=== PATIENT | female | born 1980 | race Caucasian/White ===

== ENCOUNTER 2023-10-05 10:01 | Outpatient (AMB) | payer OTHER, SELFPAY ==
--- NOTE | 2023-10-05 10:09 | A.OFFPC_ITS ---
Vital Signs 10/05/23 10:12 Height 4 ft 9 in Weight 169 lb BMI 36.6 BP 130/70 Blood Pressure Location Lt brachial Position Sitting Pulse 70 Pulse Source Pulse Oximeter Pulse Oximetry (%) 98 Oxygen Delivery Method Room Air Intake Visit Reasons: [facility] 09/13 uti, kidney stones, bladder infection Intake Note: Patient is here for hospital discharge follow up. Patient was discharged from [facility] on 09/15/23. Dude Wrangler Required: No Wilton Weaver: Not Required per policy Accompanied by: Self / Same As Patient Allergies No Known Allergies Allergy (Verified 10/05/23 17:20) Medication List - Last Reconciled 10/05/23 by Ronan Telles MD cholecalciferol (vitamin D3) 25 mcg PO DAILY insulin lispro (Admelog U-100 Insulin lispro) 1 sliding scale dose subcut USEASDIRECTD omega 6-fsx-xqr-fish oil 300-1,000 mg (Fish Oil) 1 cap PO DAILY Tobacco use date assessed: 10/05/23 Dental Screening Dental Screen Date: 10/05/23 Did you have a dental visit in the last 12 months?: Yes Did you have a dental problem in the last 6 months where you did not have access to dental care?: No Was dental information given to patient?: Patient has dentist HPI [facility] 09/13 uti, kidney stones, bladder infection HPI Details 43-year-old female presents to the [facility] for a hospital discharge follow-up. She is also establishing her care with me today. Patient has type 1 diabetes, insulin requiring since age 17. Currently on an insulin pump. 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 Recently admitted to [facility] with pyelonephritis and a kidney stone. Condition was treated with IV antibiotics and currently on no medications for it. Patient has history of asthma and needs a refill on Flovent and albuterol. She also thinks she may have mild depression. She would like to speak to a therapist about her feelings. [facility] Medical History (Updated 10/05/23 @ 17:27 by Ronan Telles MD) Asthma Generalized anxiety disorder Type 1 diabetes mellitus with hyperglycemia, with long-term current use of insulin Surgical History (Updated 10/05/23 @ 10:29 by Joe Guzman Deangelo) History of eye surgery Social History Housing: House Alcohol intake: current Alcohol intake frequency: holidays/special occasions only Patient Tobacco Use Status: Former Tobacco user e-Cigarette/Vaping Use: Never Used Second Hand Smoke Exposure: Yes service: No Current occupational status: employed Cognitive needs: No Hearing needs: No Vision needs: Yes (glasses) Questionnaire PHQ-9 Over the last 2 weeks, how often have you been bothered by any of the following problems? 1. Little interest or pleasure in doing things: not at all 2. Feeling down, depressed, or hopeless: several days 3. Trouble falling or staying asleep, or sleeping too much: not at all 4. Feeling tired or having little energy: not at all 5. Poor appetite or overeating: not at all 6. Feeling bad about yourself - or that you are a failure or have let yourself or your family down: not at all 7. Trouble concentrating on things, such as reading the newspaper or watching television: not at all 8. Moving or speaking so slowly that other people could have noticed. Or the opposite - being so fidgety or restless that you have been moving around a lot more than usual: not at all 9. Thoughts that you would be better off or of hurting yourself in some way: not at all Total score: 1 Source: Developed by Drs. Pino Kingston, Sally Starr, Will Sanchez and colleagues, with an educational prateek from [employer]. Thrive Questionnaire Date Thrive assessed: 10/05/23 I am a: Patient What is your living situation today?: I have a steady place to live Within the past 12 months, did the food you bought not last and you didn't have the money to get more?: Never true Within the past 12 months, did you worry whether your food would run out before you got money to buy more?: Never true Do you have trouble paying for medicines?: No Do you have trouble getting transportation to medical appointments?: No Do you have trouble paying your heating and electricity bill?: No Do you have trouble taking care of your child, family member or friend?: No Do you have trouble with day-to-day activities such as bathing, preparing meals, shopping, managing finances, etc.?: No Are you currently unemployed and looking for a job?: No Are you interested in more education?: No Currently or been in a relationship where the following occur: no concerns reported THRIVE Score: 0 AUDIT C Alcohol Use Questionnaire (AUDIT-C) 1. How often do you have a drink containing alcohol?: Monthly or less 2. How many drinks containing alcohol do you have on a typical day when you are drinking?: 1 or 2 Total Score: 1 CHAYO-7 AMB Questionnaire CHAYO-7 Date CHAYO - 7 assessed: 10/05/23 Feeling nervous, anxious, or on edge: 0 = Not at all Not being able to stop or control worryin = Not at all Worrying too much about different things: 0 = Not at all Trouble relaxin = Not at all Being so restless that it is hard to sit still: 0 = Not at all Becoming easily annoyed or irritable: 0 = Not at all Feeling afraid as if something awful might happen: 0 = Not at all Total CHAYO-7 score (0-4 normal; 5-9 mild; 10-14 moderate; 15-21 severe): 0 Source: Developed by Drs. Pino Kingston, Sally Starr, Will Sanchez and colleagues, with an educational prateek from [employer]. Physical exam (Primary Care) Vital Signs: Last Vital Signs Pulse 70 10/05/23 10:12 BP 130/70 10/05/23 10:12 Pulse Ox 98 10/05/23 10:12 Oxygen Delivery Method Room Air 10/05/23 10:12 BMI result Body Mass Index 36.6 Tobacco/Smoking Status: Tobacco use Status Tobacco use date assessed 10/05/23 10/05/23 10:31 Patient Tobacco Use Status Former Tobacco user 10/05/23 10:31 e-Cigarette/Vaping Use Never Used 10/05/23 10:31 PHQ-9: PHQ-9 Score PHQ-9: Total score 1 10/05/23 10:31 Thrive Assessment: Date of Thrive Assessment Date Thrive assessed 10/05/23 10/05/23 10:31 Currently or been in a relationship where the following occur: no concerns reported Const General: cooperative and healthy appearing Nutritional Appearance: well nourished Orientation/consciousness: patient oriented x3 Limitations: no limitations HENMT Head: Yes normal to inspection Eyes General: appearance normal, both eyes and all related structures Neck Neck: Yes normal visual inspection Chest Chest palpation & inspection: normal palpation of entire chest wall Resp Effort & Inspection: normal respiratory effort Neuro General: patient oriented x3 Assessment and Plan Assessment & Plan (1) Type 1 diabetes mellitus with hyperglycemia, with long-term current use of insulin: Code(s): E10.65 - Type 1 diabetes mellitus with hyperglycemia Plan: Follow-up at [facility] endocrinology. (2) Generalized anxiety disorder: Code(s): F41.1 - Generalized anxiety disorder Plan: Referral to a therapist has been made. Community health navigator has been contacted in this regard. (3) Asthma: Code(s): J45.909 - Unspecified asthma, uncomplicated Plan: Alternative for Flovent has been prescribed. Coding Level of Care Code Est Pt Level 4 (52610) Diagnoses Type 1 diabetes mellitus with hyperglycemia, with long-term current use of insulin E10.65 Generalized anxiety disorder F41.1 Asthma J45.909
[2023-10-05 10:12] VITALS: BP 130/70; PULSE 70; O2SAT 98; BMI 36.6
== END 2023-10-05 11:07 | disposition home or self-care (01) ==
PROVIDERS: PCP Internal Medicine; Visit Provider Internal Medicine
DX: E10.65 Type 1 diabetes mellitus with hyperglycemia (principal); F41.1 Generalized anxiety disorder; J45.909 Unspecified asthma, uncomplicated
CPT/HCPCS: 99214

== ENCOUNTER 2024-01-05 09:46 | Outpatient (REF) | payer OTHER, SELFPAY ==
[2024-01-05 10:46] LABS: Hematocrit 42.5 % (37.0-47.0); Hemoglobin 14.2 g/dl (12.0-16.0); Mean Corpuscular HGB Conc 33.4 g/dl (31.0-35.0); Mean Corpuscular Hemoglobin 28.7 pg (27.0-33.0); Mean Platelet Volume 10.7 fL (9.4-12.3); Platelet Count 283 X10*3/uL (160-400); Red Blood Count 4.94 X10*6/uL (4.20-5.50); Red Cell Distribution Width 11.4 % (11.0-16.0); White Blood Count 5.7 X10*3/uL (4.8-10.8)
[2024-01-05 11:18] LABS: Alanine Aminotransferase 11 U/L (0-31); Albumin Level 3.7 g/dL (3.5-5.0); Alkaline Phosphatase 69 U/L (39-117); Anion Gap 10 (12-20); Aspartate Amino Transferase 12 U/L (5-31); Bilirubin Direct 0.2 mg/dL (0.0-0.5); Bilirubin Total 0.5 mg/dL (0.0-1.0); Blood Urea Nitrogen 12 mg/dL (9-16); Calcium 9.1 mg/dL (8.4-10.2); Carbon Dioxide 29 mmol/L (22-29); Chloride 104 mmol/L (96-108); Cholesterol 175 mg/dL (<200); Estimated Glomerular Filt Rate > 60; Glucose Random 147 mg/dL (60-115); HDL Cholesterol 57 mg/dL (>40); LDL Cholesterol Calculated 106 mg/dL (<100); Potassium 4.1 mmol/L (3.3-5.1); Sodium 139 mmol/L (135-145); Total Protein 7.4 g/dL (6.5-8.0); Triglycerides 61 mg/dL (<150)
[2024-01-05 11:41] LABS: Thyroid Stimulating Hormone 1.49 uIU/mL (0.32-4.0)
== END 2024-01-05 09:47 | disposition home or self-care (01) ==
LOC: HO.LAB 09:46
PROVIDERS: PCP Internal Medicine; Visit Provider Internal Medicine
DX: F41.1 Generalized anxiety disorder (principal)
CPT/HCPCS: 36415; 80048; 80061; 80076; 84443; 85027

== ENCOUNTER 2024-01-06 09:56 | Outpatient (AMB) | payer OTHER, SELFPAY ==
--- NOTE | 2024-01-06 10:40 | A.OFFPC_ITS ---
Vital Signs 01/06/24 10:41 Height 4 ft 9 in Weight 175 lb 8 oz BMI 38.0 BP 144/88 H Blood Pressure Location Lt brachial Position Sitting Pulse 80 Pulse Source Pulse Oximeter Pulse Oximetry (%) 98 Oxygen Delivery Method Room Air Intake Visit Reasons: 3 month f/u Digital Color Press Operator Required: No Accompanied by: Self / Same As Patient Allergies No Known Allergies Allergy (Verified 01/06/24 10:46) Tobacco use date assessed: 10/05/23 Dental Screening Dental Screen Date: 10/05/23 HPI 3 month f/u HPI Details 43-year-old female presents to the offic e to discuss her medical conditions. Patient is feeling frustrated today. She is having difficulty with her insurance company, as a result she is having difficulty filling her prescript ions, seeing the stock controller etcetera. Her insulin was interrupted for a short duration. Since last office visit, patient started seeing a therapist for anxiety which has really helped her. Again this has been interrupted due to her insurance issues. She also started using the inhaler that has helped her with the breathing. Patient works and is able to function and do all activities of daily living. [facility] Medical History (Updated 10/05/23 @ 17:27 by Ronan Telles MD) Asthma Generalized anxiety disorder Type 1 diabetes mellitus with hyperglycemia, with long-term current use of insulin Surgical History History of eye surgery Social History Housing: House Alcohol intake: current Alcohol intake frequency: holidays/special occasions only Patient Tobacco Use Status: Former Tobacco user e-Cigarette/Vaping Use: Never Used Second Hand Smoke Exposure: Yes service: No Current occupational status: employed Cognitive needs: No Hearing needs: No Vision needs: Yes (glasses) Questionnaire Thrive Questionnaire Date Thrive assessed: 10/05/23 CHAYO-7 AMB Questionnaire CHAYO-7 Date CHAYO - 7 assessed: 10/05/23 Source: Developed by Drs. Pino Kingston, Sally Starr, Will Sanchez and colleagues, with an educational prateek from [employer] Physical exam (Primary Care) Vital Signs: Last Vital Signs Pulse 80 01/06/24 10:41 BP 144/88 H 01/06/24 10:41 Pulse Ox 98 01/06/24 10:41 Oxygen Delivery Method Room Air 01/06/24 10:41 BMI result Body Mass Index 38.0 Tobacco/Smoking Status: Tobacco use Status Tobacco use date assessed 10/05/23 01/06/24 10:45 Patient Tobacco Use Status Former Tobacco user 01/06/24 10:45 e-Cigarette/Vaping Use Never Used 01/06/24 10:45 Thrive Assessment: Date of Thrive Assessment Date Thrive assessed 10/05/23 01/06/24 10:45 Const General: cooperative and healthy appearing Nutritional Appearance: well nourished Orientation/consciousness: patient oriented x3 Limitations: no limitations HENMT Head: Yes normal to inspection Eyes General: appearance normal, both eyes and all related structures Neck Neck: Yes normal visual inspection Chest Chest palpation & inspection: normal palpation of entire chest wall Resp Effort & Inspection: normal respiratory effort Neuro General: patient oriented x3 Results AMB Hemoglobin A1c AMB Hemoglobin A1c 9.8 % Last Edit by TEO Argueta on 01/06/24 10:59 Results Reviewed Results Reviewed: Laboratory Last Values Hgb A1c (Clinic) 9.8 % (4.0-6.0) H 01/06/24 10:59 Assessment and Plan Assessment & Plan (1) Type 1 diabetes mellitus with hyperglycemia, with long-term current use of insulin: Code(s): E10.65 - Type 1 diabetes mellitus with hyperglycemia Plan: A1c is greater than 9. Patient is diabetes is being managed by [facility] endocrinology. I advised her to call them in adjust her insulin medications. (2) Generalized anxiety disorder: Code(s): F41.1 - Generalized anxiety disorder Plan: Continue the therapy. Orders: Orders AMB Hemoglobin A1c Today E10.65 - Type 1 diabetes mellitus with hyperglycemia Coding Level of Care Code Est Pt Level 3 (33904) Diagnoses Type 1 diabetes mellitus with hyperglycemia, with long-term current use of insulin E10.65 Generalized anxiety disorder F41.1
[2024-01-06 10:41] VITALS: BP 144/88; PULSE 80; O2SAT 98; BMI 38.0
== END 2024-01-06 11:25 | disposition home or self-care (01) ==
PROVIDERS: PCP Internal Medicine; Visit Provider Internal Medicine
DX: E10.65 Type 1 diabetes mellitus with hyperglycemia (principal); F41.1 Generalized anxiety disorder
CPT/HCPCS: 83036; 99213

== ENCOUNTER 2024-04-12 10:03 | Outpatient (AMB) | payer OTHER, SELFPAY ==
--- NOTE | 2024-04-12 10:06 | MHC.PC.OV ---
Vital Signs 04/12/24 10:07 Height 4 ft 9 in Weight 172 lb 8 oz BMI 37.3 BP 136/80 Blood Pressure Location Lt brachial Position Sitting Pulse 101 H Pulse Source Pulse Oximeter Pulse Oximetry (%) 98 Oxygen Delivery Method Room Air Intake Visit Reasons: 3mof\u- NEEDS A1C Intake Note: Patient is here to follow up on DM, Asthma. Project Manager Senior Required: No Manager Roofing: Not Required per policy Accompanied by: Self / Same As Patient Allergies No Known Allergies Allergy (Verified 04/12/24 10:07) Tobacco use date assessed: 04/12/24 Dental Screening Dental Screen Date: 10/05/23 HPI 3mof\u- NEEDS A1C HPI Details 43-year-old female presents to the office to discuss her medical conditions. Patient is a type 1 diabetic and gets her care from the endocrinology clinic at [facility]. She had been having problems getting her insulin due to insurance issues. Her blood sugars have been high and her A1c is greater than 9. Patient is aware of that and will be going to the pharmacy to get a newer dose on the insulin. She is on a pump. Patient is seeing a therapist for her depression. She declines to take any medications. Able to function and do activities of daily living. A screening mammogram has been scheduled. [facility] Medical History (Updated 04/12/24 @ 10:52 by Ronan Telles MD) Class 2 severe obesity with body mass index (BMI) of 35 to 39.9 with serious comorbidity Asthma Generalized anxiety disorder Type 1 diabetes mellitus with hyperglycemia, with long-term current use of insulin Surgical History History of eye surgery Social History Housing: House Alcohol intake: current Alcohol intake frequency: holidays/special occasions only Patient Tobacco Use Status: Former Tobacco user e-Cigarette/Vaping Use: Never Used Second Hand Smoke Exposure: Yes service: No Current occupational status: employed Cognitive needs: No Hearing needs: No Vision needs: Yes (glasses) Questionnaire Thrive Questionnaire Date Thrive assessed: 10/05/23 CHAYO-7 AMB Questionnaire CHAYO-7 Date CHAYO - 7 assessed: 10/05/23 Source: Developed by Drs. Pino L. VashtiSally mckeon, Will Sanchez and colleagues, with an educational prateek from [employer]. Physical exam (Primary Care) Vital Signs: Last Vital Signs Pulse 101 H 04/12/24 10:07 BP 136/80 04/12/24 10:07 Pulse Ox 98 04/12/24 10:07 Oxygen Delivery Method Room Air 04/12/24 10:07 Care Plan Goal for BP management: Blood pressure is stable. BMI result Body Mass Index 37.3 BMI Assessment/Plan discussion: High (1 lb per week weight loss suggested.) BMI High, discussed plan: lifestyle, weight reduction and dietary Tobacco/Smoking Status: Tobacco use Status Tobacco use date assessed 04/12/24 04/12/24 10:17 Patient Tobacco Use Status Former Tobacco user 04/12/24 10:17 e-Cigarette/Vaping Use Never Used 04/12/24 10:17 Thrive Assessment: Date of Thrive Assessment Date Thrive assessed 10/05/23 04/12/24 10:17 Const General: cooperative and healthy appearing Nutritional Appearance: well nourished Orientation/consciousness: patient oriented x3 Limitations: no limitations HENMT Head: Yes normal to inspection Eyes General: appearance normal, both eyes and all related structures Neck Neck: Yes normal visual inspection Chest Chest palpation & inspection: normal palpation of entire chest wall Resp Effort & Inspection: normal respiratory effort Neuro General: patient oriented x3 Results AMB Hemoglobin A1c AMB Hemoglobin A1c 9.4 % Last Edit by TEO Argueta on 04/12/24 10:19 Results Reviewed Results Reviewed: Laboratory Last Values Hgb A1c (Clinic) 9.4 % (4.0-6.0) H 04/12/24 10:06 Assessment and Plan Assessment & Plan (1) Generalized anxiety disorder: Code(s): F41.1 - Generalized anxiety disorder Plan: Patient believes that her condition is well controlled without medications. (2) Type 1 diabetes mellitus with hyperglycemia, with long-term current use of insulin: Code(s): E10.65 - Type 1 diabetes mellitus with hyperglycemia Plan: Patient is aware that the A1c is greater than 9. Barriers to proper care include cost of insulin. Patient is proceeding to pharmacy with correct insurance information to get her insulin. (3) Class 2 severe obesity with body mass index (BMI) of 35 to 39.9 with serious comorbidity: Code(s): E66.01 - Morbid (severe) obesity due to excess calories Plan: Counseling on the importance of diet and exercise done. Orders: Orders AMB Hemoglobin A1c Today E10.65 - Type 1 diabetes mellitus with hyperglycemia Medications: Refilled albuterol sulfate 90 mcg/actuation (Ventolin HFA) 1 inh inhalation QID PRN 8.5 grams 1RF shortness of breath or wheezing Coding Level of Care Code Est Pt Level 4 (68780) Complex EM visit Add On [id number] Diagnoses Generalized anxiety disorder F41.1 Type 1 diabetes mellitus with hyperglycemia, with long-term current use of insulin E10.65 Class 2 severe obesity with body mass index (BMI) of 35 to 39.9 with serious comorbidity E66.01
[2024-04-12 10:07] VITALS: BP 136/80; PULSE 101; O2SAT 98; BMI 37.3
== END 2024-04-12 10:33 | disposition home or self-care (01) ==
PROVIDERS: PCP Internal Medicine; Visit Provider Internal Medicine
DX: E10.65 Type 1 diabetes mellitus with hyperglycemia (principal); F41.1 Generalized anxiety disorder; E66.01 Morbid (severe) obesity due to excess calories; Z68.37 Body mass index [BMI] 37.0-37.9, adult
CPT/HCPCS: 83036; 99214; G2211

== ENCOUNTER 2024-05-12 09:05 | Outpatient (REF) | payer OTHER, SELFPAY ==
--- NOTE | ~2024-05-12 | MM_ITS ---
EXAMINATION: MM SCREENING DIGITAL BREAST TOMOSYNTHESIS, BILATERAL CLINICAL INFORMATION: Screening. Asymptomatic. COMPARISON: Mammography: Baseline TECHNIQUE: Digital breast tomosynthesis is performed in both the craniocaudal and mediolateral oblique views along with computer-aided detection (CAD). Synthesized 2D images are generated from the tomosynthesis. FINDINGS: The breasts are heterogeneously dense, which may obscure small masses (ACR BI-RADS breast composition Category c). There are no significant masses, abnormal calcifications, or other abnormalities. MM/MM tomosynthesis screening BI IMPRESSION: No mammographic evidence of malignancy. ASSESSMENT: BI-RADS BI-RADS 1 - Negative RECOMMENDATION: Routine annual mammography screening. 1 year F/U This examination should not preclude the clinical evaluation of a suspicious palpable abnormality. This patient's information was entered into a reminder system with a target due date for their next mammogram. Electronically signed by: Manda Bryan DO 06/02/2024 10:25 PM EDT
== END 2024-05-12 09:06 | disposition home or self-care (01) ==
LOC: HO.MAMMO 09:05
PROVIDERS: PCP Internal Medicine; Visit Provider Internal Medicine
DX: Z12.31 Encounter for screening mammogram for malignant neoplasm of breast (principal)
CPT/HCPCS: 77063; 77067

== ENCOUNTER → 2024-05-12 09:15 | Outpatient (BNV) | payer OTHER, SELFPAY | PROVIDERS: PCP Internal Medicine; Visit Provider Internal Medicine | DX: Z12.31 Encounter for screening mammogram for malignant neoplasm of breast (principal) | CPT/HCPCS: 77063; 77067 ==

== ENCOUNTER 2024-07-06 11:16 | Outpatient (REF) | payer OTHER, SELFPAY ==
[2024-07-07 11:04] LABS: Bacterial Vaginosis PCR POSITIVE (Negative); Candida Group PCR NOT DETECTED (Not Detect); Candida glab krusei PCR NOT DETECTED (Not Detect); Trichomonas vaginalis PCR NOT DETECTED (Not Detect)
[2024-07-07 11:37] LABS: CT PCR NOT DETECTED (Not Detect.); NG PCR NOT DETECTED (Not Detect.)
[2024-07-11 13:09] LABS: HPV mRNA E6/E7 Not Detected (Not Detected)
== END 2024-07-06 11:17 | disposition home or self-care (01) ==
LOC: HO.LAB 11:16
PROVIDERS: PCP Internal Medicine; Visit Provider Advanced Practice Midwife
DX: Z01.419 Encounter for gynecological examination (general) (routine) without abnormal findings (principal); E10.65 Type 1 diabetes mellitus with hyperglycemia; E66.01 Morbid (severe) obesity due to excess calories; E10.9 Type 1 diabetes mellitus without complications; N89.8 Other specified noninflammatory disorders of vagina; B37.31 Acute candidiasis of vulva and vagina; Z11.3 Encounter for screening for infections with a predominantly sexual mode of transmission; Z68.38 Body mass index [BMI] 38.0-38.9, adult
CPT/HCPCS: 0352U; 36415; 81025; 87491; 87591; 87624; 88175; 99386

== ENCOUNTER 2024-07-06 11:16 | Outpatient (AMB) | payer OTHER, SELFPAY ==
[2024-07-06 11:17] VITALS: BMI 38.3
--- NOTE | 2024-07-06 11:17 | A.OFFVIS_ITS ---
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 Services: Compensation Supervisor Present Information Interpreted: clinical only Cath Lab Technologist: Cath Lab Technologist Present Allergies insulin lispro [From Admelog U-100 Insulin lispro] Allergy (Mild, Verified 07/06/24 11:25) Blurry Vision Medication List - Last Reconciled 07/06/24 by Elzbieta Anderson CNM albuterol sulfate 90 mcg/actuation (Ventolin HFA) 1 inh inhalation QID PRN cholecalciferol (vitamin D3) 25 mcg PO DAILY insulin aspart U-100 (Novolog FlexPen U-100 Insulin aspart) 5 units subcut TID omega 6-rur-swi-fish oil 300-1,000 mg (Fish Oil) 1 cap PO DAILY Is last menstrual period known: Yes Last menstrual period: 05/21/24 HPI HPI 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 She is type 1 diabetic. She is sexually active with her partner it been together 11 years they have a 5-year-old daughter she and he did not think they could get and went to start infertility services and discovered she was . She did have the diabetes at the time and she had preeclampsia at the very end and she was 39 years old at time she delivered she received care at [facility] she had an emergency because her daughter's heartbeat dropped at the very last minute. They do not contraceptive but she is not particularly worried and would be open to if it happened. Right now there under financial stress. Her period is late but she does not normally get worried about it because sometimes it can be late if she is stressed. her only symptom is fatigue. She sometimes has some vaginal itching in has been taking some probiotics because she read that it helped with the she finds it helps. [facility] Medical History (Updated 07/06/24 @ 12:18 by Elzbieta Anderson CNM) Class 2 severe obesity with body mass index (BMI) of 35 to 39.9 with serious comorbidity Asthma Generalized anxiety disorder Type 1 diabetes mellitus with hyperglycemia, with long-term current use of insulin Surgical History (Updated 07/06/24 @ 11:29 by Alber Wilson [employer]AK[employer]OOK) S/P History of eye surgery Social History Housing: House Alcohol intake: current Alcohol intake frequency: holidays/special occasions only Patient Tobacco Use Status: Former Tobacco user e-Cigarette/Vaping Use: Never Used Second Hand Smoke Exposure: Yes service: No Current occupational status: employed Cognitive needs: No Hearing needs: No Vision needs: Yes (glasses) Female Reproductive History Menstrual Age of Menarche: 11 Duration of menses: 6-7 days Date of last menstrual period: 05/21/24 control method: none Total pregnancies: 1 Full term: 1 Date of last pap smear: 10/12/20 (negative per pt.) Date of Mammogram: 05/12/23 (negative) Physical Exam Vital Signs: BMI result Body Mass Index 38.3 Const General: healthy appearing, comfortable, no acute distress, well developed and alert Nutritional Appearance: average body habitus Orientation/consciousness: patient oriented x3 Limitations: no limitations HEENT Head: Yes normocephalic Neck Neck: Yes normal visual inspection Chest Chest palpation & inspection: normal inspection of the chest Breast/axilla inspection: normal inspection of the breasts and normal inspection of the axillae Breast/axilla palpation: normal palpation of the breasts and normal palpation of the axillae Resp Effort & Inspection: normal respiratory effort GI Inspection: Yes normal to inspection, No Abdominal wall edema and No distended Palpation (GI): Soft to palpation and nontender Other: Labia minora slightly reddened. Vagina pink moist fairly normal appearing whitish discharge. Vagina is somewhat tight and narrow. Cervix nulliparous pink smooth mobile nontender uterus midposition nontender adnexa nontender good tone with Kegel. General: Yes bladder normal to palpation External Female Exam: normal external appearance and normal appearance of the urethra Speculum Exam - Vagina: normal appearance of the vagina, normal palpation and normal vaginal discharge Speculum Exam - Cervix: normal appearance of the cervix, normal palpation and nontender Bimanual exam- vagina & uterus: normal bimanual exam, normal palpation, uterine size normal, bladder normal to palpation, consistency normal, normal palpation, uterine mobility normal, uterine shape normal, No Cervical tenderness present, non-tender and no cervical motion tenderness Bimanual Exam- Adnexa, other: normal adnexae, no masses, normal and No adnexal tenderness Neuro General: patient oriented x3 Results AMB Test Urine AMB Test Urine Negative Last Edit by Alber Wilson CMA on 07/06/24 12:25 Assessment & Plan Assessment & Plan (1) Type 1 diabetes mellitus with hyperglycemia, with long-term current use of insulin: Code(s): E10.65 - Type 1 diabetes mellitus with hyperglycemia Category: Medical (2) Class 2 severe obesity with body mass index (BMI) of 35 to 39.9 with serious comorbidity: Code(s): E66.01 - Morbid (severe) obesity due to excess calories Category: Medical (3) Cervical cancer screening: Code(s): Z12.4 - Encounter for screening for malignant neoplasm of cervix Category: Medical (4) Encounter for screening examination for sexually transmitted disease: Code(s): Z11.3 - Encounter for screening for infections with a predominantly sexual mode of transmission Category: Medical (5) Yeast infection involving the vagina and surrounding area: Code(s): B37.31 - Acute candidiasis of vulva and vagina Category: Medical Plan -----Discussed in this visit the following: healthy balanced diet, regular and consistent exercise, getting recommended health screens, doing the best she can for her particular health concerns, kegel exercises, pap smear screening and followup recommendations, mammography screening and SBE, normal changes in cycles in her life stage--- . Patient had her mammogram in May. 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 While she would be open to a if it occurred. I discussed that if she did become she should immediately begin care at [facility] where she was seen before as she will be high-risk full reasons of age type 1 diabetes and history see if. She has an experimental worker that she stop with now is system and she would probably stick with them method what. She says her sugars he good control she has a pump. Discussed mild vaginal itching discussed exposure to air aid prevention in treatment but also offered to send prescription for miconazole 7 it is not covered by her insurance she will shop around and get it OTC clotrimazole is acceptable substitute but I recommend 7 day treatment for the as it is mall the. I am also prescribing fluconazole for her as she is type 1 diabetic she does not need to use it unless she really needs it for a very that yeast infection. We will do a test here now and I asked her to call in for the results after lunch.=results negative. Orders: Orders Hepatitis C Antibody Today B37.31 - Acute candidiasis of vulva and vagina, E10.65 - Type 1 diabetes mellitus with hyperglycemia, E66.01 - Morbid (severe) obesity due to excess calories, Z11.3 - Encounter for screening for infections with a predominantly sexual mode of transmission, Z12.4 - Encounter for screening for malignant neoplasm of cervix HIV Ab/Ag Today B37.31 - Acute candidiasis of vulva and vagina, E10.65 - Type 1 diabetes mellitus with hyperglycemia, E66.01 - Morbid (severe) obesity due to excess calories, Z11.3 - Encounter for screening for infections with a predominantly sexual mode of transmission, Z12.4 - Encounter for screening for malignant neoplasm of cervix AMB HCG Urine Test Today Z32.02 - Encounter for test, result negative Hepatitis B Surface Antigen Today B37.31 - Acute candidiasis of vulva and vagina, E10.65 - Type 1 diabetes mellitus with hyperglycemia, E66.01 - Morbid (severe) obesity due to excess calories, Z11.3 - Encounter for screening for infections with a predominantly sexual mode of transmission, Z12.4 - Encounter for screening for malignant neoplasm of cervix Syphilis Screen Today B37.31 - Acute candidiasis of vulva and vagina, E10.65 - Type 1 diabetes mellitus with hyperglycemia, E66.01 - Morbid (severe) obesity due to excess calories, Z11.3 - Encounter for screening for infections with a predominantly sexual mode of transmission, Z12.4 - Encounter for screening for malignant neoplasm of cervix Medications: New miconazole nitrate 2% (Miconazole-7) 1 appful vaginal BEDTIME 7 days 45 grams 1RF fluconazole may repeat second dose 72 hrs after first dose if symptoms persist 150 mg PO Q3D 2 doses 2 tabs 0RF Coding Level of Care Code New Pt Prev Care 40-64y(02622) Diagnoses Type 1 diabetes mellitus with hyperglycemia, with long-term current use of insulin E10.65 Class 2 severe obesity with body mass index (BMI) of 35 to 39.9 with serious comorbidity E66.01 Cervical cancer screening Z12.4 Encounter for screening examination for sexually transmitted disease Z11.3 Yeast infection involving the vagina and surrounding area B37.31
== END 2024-07-06 12:31 | disposition home or self-care (01) ==
LOC: HO.HWSM 11:16
PROVIDERS: PCP Internal Medicine; Visit Provider Advanced Practice Midwife
DX: Z01.419 Encounter for gynecological examination (general) (routine) without abnormal findings (principal); B37.31 Acute candidiasis of vulva and vagina; E10.65 Type 1 diabetes mellitus with hyperglycemia; E66.01 Morbid (severe) obesity due to excess calories; Z32.02 Encounter for pregnancy test, result negative
CPT/HCPCS: 99386

== ENCOUNTER 2024-08-18 14:29 | Outpatient (AMB) | payer OTHER, SELFPAY ==
--- NOTE | 2024-08-18 15:06 | AM.OFFVISNUR ---
Intake Visit Reasons: PPD implant for [facility] requirement. Allergies insulin lispro [From Admelog U-100 Insulin lispro] Allergy (Mild, Verified 07/06/24 11:25) Blurry Vision Office Meds tuberculin PPD 5 tub. unit/0.1 mL intradermal injection solution Performing Provider: Viktor Nogueira PA-C Performing [facility] [place] Administered by: Hayde Bingham RN on 08/18/24 15:06 Dose Route Admin Location Dispensed Lot Number Expiration Date [facility] [employer] 0.1 mL intradermal 0.1 mL [id number] 02/09/27 97508-743-80 [employer] Assessment & Plan Assessment & Plan Orders: Orders AMB PPD Planted Today Z11.1 - Encounter for screening for respiratory tuberculosis Medications: New tuberculin PPD 0.1 mL intradermal ONCE 0.1 mL 0RF Z11.1 - Encounter for screening for respiratory tuberculosis
== END 2024-08-18 15:07 | disposition home or self-care (01) ==
PROVIDERS: PCP Internal Medicine; Visit Provider Physician Assistant
DX: Z11.1 Encounter for screening for respiratory tuberculosis (principal)

== ENCOUNTER → 2024-08-18 14:29 | Outpatient (BNVA) | payer OTHER, SELFPAY | PROVIDERS: PCP Internal Medicine; Visit Provider Physician Assistant | DX: Z11.1 Encounter for screening for respiratory tuberculosis (principal) | CPT/HCPCS: 86580 ==

== ENCOUNTER → 2024-08-21 08:50 | Outpatient (BNVA) | payer OTHER, SELFPAY | PROVIDERS: PCP Internal Medicine; Visit Provider Internal Medicine ==

== ENCOUNTER 2024-10-19 10:18 | Outpatient (REF) | payer OTHER, SELFPAY ==
--- OUTSIDE RECORDS SUMMARY | 2024-10-19 11:52 | XMS_ITS | Clinical Summary ---
Author Organization [facility] ity Address [address] [place] [address] Care Team Providers Care Legal Services Professional Name Role Phone Unavailable Primary Care Provider Unavailabl e Social History Tobacco Use Types Packs/Day Years Used Date Smoking Tobacco: Never Assessed Sex and Gender Information Value Date Recorded Sex Assigned at Not on file Gender Identity Not on file Sexual Orientation Not on file Plan of Treatment Health Maintenance Due Date Last Done Comments Breast Cancer Screening 1979 DTaP,Tdap,and Td Vaccines (1 - Tdap) 1998 Hepatitis B Vaccines (1 of 3 - 19+ 3-dose series) 1998 Cervical Cancer Screening: P ap Smear 2000 Colorectal Cancer Screening: Colonoscopy 08/16/2022 Depression Screening 08/16/2022 HIV Screening 08/16/2022 Hepatitis C Screening 08/16/2022 Social Influencers of Health Screening 08/16/2022 COVID-19 Vaccine (2023-2 5 season) 2024 Influenza Vaccine (#1) 2024 HIB Vaccines Aged Out No longer eligi ble based on patient's age to complete this topic HPV Vaccines Aged Out No longer eligi ble based on patient's age to complete this topic Hepatitis A Vaccines Aged Out No long er eligible based on patient's age to complete this topic IPV Vaccines Aged Out No longer eligi ble based on patient's age to complete this topic MMR Vaccines Aged Out No longer eligi ble based on patient's age to complete this topic Meningococcal ACWY Vaccine Aged Out N o longer eligible based on patient's age to complete this topic Pneumococcal Vaccine: Pediat rics (0 to 5 Years) and At-Risk Patients (6 to 64 Years) Aged Out No longer eligible b ased on patient's age to complete this topic RSV Immunization Patients Un prosper 20 months Aged Out No longer eligible b ased on patient's age to complete this topic Varicella Vaccines Aged Out No longer eligible based on patient's age to complete this topic
[2024-10-19 12:43] LABS: Appearance Urine Cloudy; Color Urine Yellow; Glucose Urine UA Negative (Negative); Leukocyte Esterase Urine Negative (Negative); Nitrite Urine Negative (Negative); Specific Gravity - Urine 1.015 (1.005-1.025); Urine Blood Negative (Negative); Urine Ketones Negative (Negative); Urine Protein Trace mg/dL (Neg-Trace)
[2024-10-19 12:44] LABS: Hematocrit 43.3 % (37.0-47.0); Hemoglobin 14.3 g/dl (12.0-16.0); Mean Corpuscular Hemoglobin 28.9 pg (27.0-33.0); Mean Corpuscular Volume 87.5 fL (80.0-98.0); Mean Platelet Volume 10.5 fL (9.4-12.3); Platelet Count 289 X10*3/uL (160-400); Red Blood Count 4.95 X10*6/uL (4.20-5.50); Red Cell Distribution Width 11.6 % (11.0-16.0); White Blood Count 6.3 X10*3/uL (4.8-10.8)
[2024-10-19 12:49] LABS: Estimated Average Glucose 229 mg/dL; Hemoglobin A1C 302.9589 umol/L; Hemoglobin A1c % 9.6 % (<6.0); Total Hemoglobin (HGBA1C) 3724.0318 umol/L
[2024-10-19 13:05] LABS: Creatinine Urine 66.01 mg/dL; Microalbum/Creatinine Ratio Ur 116.6 ug/mg cr (<30)
[2024-10-19 13:15] LABS: Alanine Aminotransferase 13 U/L (0-31); Albumin Level 3.9 g/dL (3.5-5.0); Alkaline Phosphatase 72 U/L (39-117); Anion Gap 8 (12-20); Aspartate Amino Transferase 16 U/L (5-31); Bilirubin Direct 0.2 mg/dL (0.0-0.5); Bilirubin Total 0.4 mg/dL (0.0-1.0); Blood Urea Nitrogen 16 mg/dL (9-16); Calcium 9.1 mg/dL (8.4-10.2); Carbon Dioxide 27 mmol/L (22-29); Chloride 106 mmol/L (96-108); Cholesterol 188 mg/dL (<200); Estimated Glomerular Filt Rate > 60; Glucose Random 77 mg/dL (60-115); HDL Cholesterol 59 mg/dL (>40); LDL Cholesterol Calculated 113 mg/dL (<100); Potassium 4.3 mmol/L (3.3-5.1); Sodium 137 mmol/L (135-145); Total Protein 7.7 g/dL (6.5-8.0); Triglycerides 80 mg/dL (<150)
[2024-10-19 13:33] LABS: Thyroid Stimulating Hormone 1.11 uIU/mL (0.32-4.0)
[2024-10-19 13:34] LABS: HBS Num1 > 1000.00 mIU/mL (0-7.99); ~Hepatitis B Surface Antibody REACTIVE (Nonreactive)
== END 2024-10-19 10:19 | disposition home or self-care (01) ==
LOC: HO.LAB 10:18
PROVIDERS: PCP Internal Medicine; Visit Provider Internal Medicine
DX: E10.65 Type 1 diabetes mellitus with hyperglycemia (principal); E66.01 Morbid (severe) obesity due to excess calories; Z68.38 Body mass index [BMI] 38.0-38.9, adult; Z11.9 Encounter for screening for infectious and parasitic diseases, unspecified
CPT/HCPCS: 36415; 80048; 80061; 80076; 81003; 82043; 82570; 83036; 84443; 85027; 86706; 86735; 86762; 86765; 99212

== ENCOUNTER 2024-11-16 09:50 | Outpatient (AMB) | payer OTHER, SELFPAY ==
--- NOTE | 2024-11-16 09:58 | MHC.PC.OV ---
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 Hair Required: No Accompanied by: Self / Same As Patient All[facility]ies [facility] lis[facility] Allergy (Mild, Verified 11/16/24 10:27) Blurry Vision Medication List - Last Reconciled 11/16/24 by Rosario Vines PA-C albuterol sulfate 90 mcg/actuation (Ventolin HFA) 1 inh inhalation QID PRN ascorbic acid (vitamin C) 1 g PO DAILY cholecalciferol (vitamin D3) 25 mcg PO DAILY insulin aspart U-100 (Novolog FlexPen U-100 Insulin aspart) 5 units subcut TID L.acid,dirk-B.anim,bifid,infan 50 billion cell ([employer] [place] Women Probiotic) 1 cap PO DAILY multivitamin (Daily Multi-Vitamin tablet) 1 tab PO DAILY omega 7-cwf-kig-fish oil 300-1,000 mg (Fish Oil) 1 cap PO DAILY Tobacco use date assessed: 10/19/24 Dental Screening Dental Screen Date: 11/16/24 Did you have a dental visit in the last 12 months?: Yes Did you have a dental problem in the last 6 months where you did not have access to dental care?: No Was dental information given to patient?: Patient has dentist [facility] Medical History (Updated 11/16/24 @ 10:32 by Rosario Vines PA-C) History of mammogram (~05/12/24) Elevated blood pressure reading Hyperlipidemia LDL goal <70 Class 2 severe obesity with body mass index (BMI) of 35 to 39.9 with serious comorbidity Asthma Generalized anxiety disorder Type 1 diabetes mellitus with hyperglycemia, with long-term current use of insulin Surgical History S/P History of eye surgery Social History Housing: House Alcohol intake: current Alcohol intake frequency: holidays/special occasions only Patient Tobacco Use Status: Former Tobacco user e-Cigarette/Vaping Use: Never Used Second Hand Smoke Exposure: Yes service: No Current occupational status: employed Cognitive needs: No Hearing needs: No Vision needs: Yes (glasses) Female Reproductive History Menstrual Age of Menarche: 11 Questionnaire Thrive Questionnaire Date Thrive assessed: 10/19/24 CHAYO-7 AMB Questionnaire CHAYO-7 Date CHAYO - 7 assessed: 10/19/24 Source: Developed by Drs. Pino Kingston, Sally Starr, Will Sanchez and colleagues, with an educational prateek from [employer]. Physical exam (Primary Care) Vital Signs: Last Vital Signs Temp 97.1 F 11/16/24 09:59 Pulse 80 11/16/24 09:59 BP 142/84 H 11/16/24 09:59 Pulse Ox 99 11/16/24 09:59 Oxygen Delivery Method Room Air 11/16/24 09:59 Care Plan Goal for BP management: <130/80; patient to monitor blood pressure over the next month and bring a blood pressure diary at her next visit. BMI result Body Mass Index 37.7 BMI Assessment/Plan discussion: High BMI High, discussed plan: lifestyle, weight reduction, dietary, physical activity and alcohol moderation Tobacco/Smoking Status: Tobacco use Status Tobacco use date assessed 10/19/24 11/16/24 09:59 Patient Tobacco Use Status Former Tobacco user 11/16/24 09:59 e-Cigarette/Vaping Use Never Used 11/16/24 09:59 Thrive Assessment: Date of Thrive Assessment Date Thrive assessed 10/19/24 11/16/24 09:59 Coding Level of Care Code Est Pt Level 4 (07724) Complex EM visit Add On G2211 Diagnoses Class 2 severe obesity with body mass index (BMI) of 35 to 39.9 with serious comorbidity E66.01 Asthma J45.909 Generalized anxiety disorder F41.1 Type 1 diabetes mellitus with hyperglycemia, with long-term current use of insulin E10.65 Hyperlipidemia LDL goal <70 E78.5 Elevated blood pressure reading R03.0 Assessment & Plan Assessment & Plan (1) Class 2 severe obesity with body mass index (BMI) of 35 to 39.9 with serious comorbidity: Code(s): E66.01 - Morbid (severe) obesity due to excess calories Category: Medical Plan: Her diet and exercise regimen. Condition is chronic and stable continue to monitor. (2) Asthma: Code(s): J45.909 - Unspecified asthma, uncomplicated Category: Medical Plan: Patient currently has albuterol inhaler at home. Denies any pulmonary related complaints at this time. Condition is chronic and stable continue to monitor. (3) Generalized anxiety disorder: Code(s): F41.1 - Generalized anxiety disorder Category: Medical Plan: Patient being followed by therapist in [facility]. the provider's name is Kisha Haynes patient will get the therapist last name and let us know. Patient not currently on any medication. Condition is chronic and stable continue to monitor (4) Type 1 diabetes mellitus with hyperglycemia, with long-term current use of insulin: Code(s): E10.65 - Type 1 diabetes mellitus with hyperglycemia Category: Medical Plan: Patient currently being followed by endocrinology at [facility]. Has insulin pump in place. Is currently on NovoLog. Has been assessing her blood glucose level at least twice every day and is trying to check it even more frequently. Has regular follow-up with endocrinology. Condition is chronic and stable continue to monitor. (5) Hyperlipidemia LDL goal <70: Code(s): E78.5 - Hyperlipidemia, unspecified Category: Medical Plan: Last LDL was on 10/19/2024 which was 113. Patient declined statin. Currently on fish oil. Patient will also improve her diet and exercise regimen. Condition is chronic and stable continue to monitor. (6) Elevated blood pressure reading: Code(s): R03.0 - Elevated blood-pressure reading, without diagnosis of hypertension Category: Medical Plan: Patient's blood pressure noted to be elevated today. Goal blood pressure is less than 130/80. Blood pressure in the past has been normal. Patient will assess her blood pressure and bring a diarrhea at her next visit in November and we will assess the patient needs to be started on any antihypertensive. Condition is chronic and stable continue to monitor. Plan Plan The patient will work towards better diabetes management through structured blood glucose monitoring aligned with her insulin pump. The situation-induced hypertension observed today will not immediately necessitate medication, but regular home monitoring is advised. For hyperlipidemia, she will continue adhering to her diet and Whitestone-3 supplementation, with possible medication review later. Anxiety management will continue through therapy sessions. Follow-up evaluations with her urology teacher are advised. Patient Instructions: Patient Instructions - Monitor blood glucose regularly and document readings. - Follow a Mediterranean-style diet and continue Whitestone-3 fish oil supplements. - Keep track of blood pressure at home regularly. - Attend therapy sessions consistently. - Follow-up with urology teacher as scheduled. - Watch for any symptoms of high blood sugar or complications from diabetes and report immediately if they occur. - Return for scheduled labs and medical follow-ups. - Stay physically active, balancing school and home life effectively. Scribe Plan - Not visible on output: History of Present Illness The patient is a 44-year-old female presenting for a follow-up on Type 1 Diabetes Mellitus. She has had diabetes since she was 16 years old and manages her condition with an insulin pump. Recent challenges such as work stress and returning to school have affected her ability to regularly check her blood glucose levels, resulting in inconsistent monitoring. The patient's latest HbA1c was reported to be 9.6%, slightly increased from 9.4%. While waiting for an insurance-covered sensor for better management, she is encouraged to check her blood sugar more regularly. The patient also has hypertension, likely exacerbated by caffeine intake and stress, noted to be temporarily elevated during today's visit. For hyperlipidemia, her last test results show an LDL level of 113 mg/dL. She has no history of antihypertensive medication. She is also dealing with anxiety but refrains from taking medications. Instead, she's in regular therapy sessions with a counselor. 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 - No current alcohol, tobacco, or illicit substance use was discussed. - Recommended Mediterranean diet with Whitestone-3 fish oil supplementation. - Engages in regular therapy sessions for anxiety management. Review of Systems - Cardiovascular: Reports situational hypertension possibly associated with stress and caffeine. - Psychological: Reports anxiety being managed with regular therapy sessions. Physical Exam Appearance: Alert. Oriented X3. No acute distress. Head: Normal external exam. Normocephalic. Atraumatic. Eyes: Pupils are equal, round, and reactive to light. Extraocular movements intact. Conjunctiva and sclera normal. Eyelids normal. Ears: External auditory canal normal. Tympanic membranes normal. Throat: Pharynx normal. Uvula midline. Moist mucous membranes. Neck: Normal inspection. Neck supple. Full range of motion. No adenopathy. Thyroid Normal. No meningeal signs. No neck mass noted. Cardiovascular: Normal heart rate and rhythm. Heart sound normal. No murmurs noted. Pulses normal throughout. Respiratory: No respiratory distress. Painless inspiration. Breath sounds normal. No wheezes/rales/rhonchi noted. Chest nontender. No accessory muscle usage noted or decreased air movement noted. Abdomen: Soft and nontender. Bowel sounds normal in all 4 quadrants. No distention noted. No organomegaly noted. No visible injury noted. Back: No costovertebral angle tenderness. Full range of motion noted. Skin: Skin warm and dry. Normal skin color. Normal skin turgor. No rashes/lesions/lacerations noted. Extremities: No lower extremity edema. Extremities exhibit normal range of motion. Extremities nontender. Neuro: Oriented X 3. No motor deficit. No sensory deficit. Reflexes normal. Results - Labs: Recent HbA1c of 9.6% (October 19), LDL cholesterol at 113 mg/dL, total cholesterol at 188 mg/dL, triglycerides at 80 mg/dL, HDL at 59 mg/dL. Thyroid function tests and liver enzymes were within normal limits. Plan The patient will work towards better diabetes management through structured blood glucose monitoring aligned with her insulin pump. The situation-induced hypertension observed today will not immediately necessitate medication, but regular home monitoring is advised. For hyperlipidemia, she will continue adhering to her diet and Whitestone-3 supplementation, with possible medication review later. Anxiety management will continue through therapy sessions. Follow-up evaluations with her urology teacher are advised. Patient was informed and verbally consented to the use of an ambient scribe for clinic note documentation during this visit. Discussion Notes During our conversation, we discussed the importance of maintaining consistent blood glucose monitoring and the use of a continuous glucose sensor to assist in her diabetes management once approved by her insurance. We deliberated on involving diet, particularly the Mediterranean type, with the use of Whitestone-3 supplements to manage hyperlipidemia. For her hypertension, a non-pharmacological management approach was advised, emphasizing lifestyle adjustments considering factors such as stress and caffeine intake. We also reviewed her lipid panel findings and recommended follow-up assessments. The ongoing therapeutic approach for her anxiety was affirmed to be suitable, deferring any medication interventions. We finalized our discussion, outlining a plan for follow-ups, necessary lab work, and the potential for future medication evaluation based on progress. Patient Instructions - Monitor blood glucose regularly and document readings. - Follow a Mediterranean-style diet and continue Whitestone-3 fish oil supplements. - Keep track of blood pressure at home regularly. - Attend therapy sessions consistently. - Follow-up with urology teacher as scheduled. - Watch for any symptoms of high blood sugar or complications from diabetes and report immediately if they occur. - Return for scheduled labs and medical follow-ups. - Stay physically active, balancing school and home life effectively.
[2024-11-16 09:59] VITALS: BP 142/84; PULSE 80; TEMP 36.2; O2SAT 99; BMI 37.7
--- OUTSIDE RECORDS SUMMARY | 2024-11-16 11:21 | XMS_ITS | Clinical Summary ---
Author Organization [facility] ity Address [address] [place] [address] Care Team Providers Care Manager Bridge Name Role Phone Unavailable Primary Care Provider Unavailabl e Social History Tobacco Use Types Packs/Day Years Used Date Smoking Tobacco: Never Assessed Comments Unknown Sex and Gender Information Value Date Recorded Sex Assigned at Not on file Legal Sex Female 9:06 AM EST Gender Identity Not on file Sexual Orientation [...] [employer] of Health Screening 08/16/2022 COVID-19 Vaccine ( - 2023-2 5 season) 2024 Influenza Vaccine (#1) 2024 [...] patient's age to complete this topic Meningococcal B Vacine Aged Out No lo nger eligible based on patient's age to complete [...]
== END 2024-11-16 11:06 | disposition home or self-care (01) ==
PROVIDERS: PCP Internal Medicine; Visit Provider Physician Assistant Medical
DX: E78.5 Hyperlipidemia, unspecified (principal); E10.65 Type 1 diabetes mellitus with hyperglycemia; E66.01 Morbid (severe) obesity due to excess calories; Z68.37 Body mass index [BMI] 37.0-37.9, adult; J45.909 Unspecified asthma, uncomplicated; F41.1 Generalized anxiety disorder; R03.0 Elevated blood-pressure reading, without diagnosis of hypertension

== ENCOUNTER → 2024-11-16 09:50 | Outpatient (BNVA) | payer OTHER, SELFPAY | PROVIDERS: PCP Internal Medicine; Visit Provider Physician Assistant Medical | DX: E66.01 Morbid (severe) obesity due to excess calories (principal); Z68.37 Body mass index [BMI] 37.0-37.9, adult; F41.1 Generalized anxiety disorder; E10.65 Type 1 diabetes mellitus with hyperglycemia; E78.5 Hyperlipidemia, unspecified; R03.0 Elevated blood-pressure reading, without diagnosis of hypertension; Z87.891 Personal history of nicotine dependence; Z71.3 Dietary counseling and surveillance | CPT/HCPCS: 99212 ==

== ENCOUNTER 2025-01-18 10:39 | Outpatient (AMB) | payer OTHER, SELFPAY ==
--- NOTE | 2025-01-18 10:41 | A.OFFPC_ITS ---
Vital Signs 01/18/25 10:42 Height 4 ft 9 in Weight 174 lb BMI 37.6 BP 132/88 Blood Pressure Location Lt brachial Position Sitting Pulse 70 Pulse Source Pulse Oximeter Temp 97.3 F Temp Source Skin Pulse Oximetry (%) 98 Oxygen Delivery Method Room Air Intake Visit Reasons: 3mth f/u - see comments Intake Note: Patient here for 3 month follow up Personal Clothing Laundry Aide Required: No Accompanied by: Self / Same As Patient Allergies insulin lispro [From Admelog U-100 Insulin lispro] Allergy (Mild, Verified 01/18/25 10:59) Blurry Vision Medication List - Last Reconciled 01/18/25 by Rosario Vines PA-C albuterol sulfate 90 mcg/actuation (Ventolin HFA) 1 inh inhalation QID PRN ascorbic acid (vitamin C) 1 g PO DAILY cholecalciferol (vitamin D3) 25 mcg PO DAILY insulin aspart U-100 (Novolog FlexPen U-100 Insulin aspart) 5 units subcut TID L.acid,dirk-B.anim,bifid,infan 50 billion cell (Fortify [place] Women Probiotic) 1 cap PO DAILY multivitamin (Daily Multi-Vitamin tablet) 1 tab PO DAILY omega 9-dxu-epo-fish oil 300-1,000 mg (Fish Oil) 1 cap PO DAILY Tobacco use date assessed: 10/19/24 Dental Screening Dental Screen Date: 11/16/24 HPI 3mth f/u - see comments HPI Details The patient is a 44-year-old female presenting with a follow-up for diabetes management. Her Hemoglobin A1c levels previously as high as 12, were recorded as 9.6 in October, and currently 10.3. There seem to be discrepancies in the system records that caused some confusion. Continuing diabetes management at [facility] is mentioned, with an upcoming appointment planned for March. Her asthma management remains relatively stable with occasional inhaler use. Seasonal allergy symptoms are reported to have increased, highlighting the importance of discussing suitable medications like Claritin or Zyrtec. Constraints in medication coverage have been noted, affecting her management plan. 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 - Medications: Issues with allergy medic ation coverage through [employer]. - Hobbies/Interests: Ponfac-making as a personal activity. - Education: Completing phlebotomy train ing. [facility] Medical History (Updated 01/18/25 @ 11:26 by Rosario Vines PA-C) Seasonal allergies Cervical cancer screening (~07/06/24) History of mammogram (~05/12/24) Elevated blood pressure reading Hyperlipidemia LDL goal <70 Class 2 severe obesity with body mass index (BMI) of 35 to 39.9 with serious comorbidity Asthma Generalized anxiety disorder Type 1 diabetes mellitus with hyperglycemia, with long-term current use of insulin Surgical History S/P History of eye surgery Social History Housing: House Alcohol intake: current Alcohol intake frequency: holidays/special occasions only Patient Tobacco Use Status: Former Tobacco user e-Cigarette/Vaping Use: Never Used Second Hand Smoke Exposure: Yes service: No Current occupational status: employed Current occupational exposures/hazards: No Cognitive needs: No Hearing needs: No Vision needs: Yes (glasses) Female Reproductive History Menstrual Age of Menarche: 11 Questionnaire Thrive Questionnaire Date Thrive assessed: 01/18/25 I am a: Patient What is your living situation today?: I have a steady place to live Within the past 12 months, did the food you bought not last and you didn't have the money to get more?: Sometimes True Within the past 12 months, did you worry whether your food would run out before you got money to buy more?: Sometimes True Do you have trouble paying for medicines?: No Do you have trouble getting transportation to medical appointments?: No Do you have trouble paying your heating and electricity bill?: Yes Do you have trouble taking care of your child, family member or friend?: No Do you have trouble with day-to-day activities such as bathing, preparing meals, shopping, managing finances, etc.?: No Are you currently unemployed and looking for a job?: No Are you interested in more education?: Yes Currently or been in a relationship where the following occur: I choose not to answer THRIVE Score: 3 AUDIT C Alcohol Use Questionnaire (AUDIT-C) 1. How often do you have a drink containing alcohol?: Never 2. How many drinks containing alcohol do you have on a typical day when you are drinking?: 1 or 2 3. How often do you have six or more drinks on one occasion?: Never Total Score: 0 Score Reviewed/Action Taken: No CHAYO-7 AMB Questionnaire CHAYO-7 Date CHAYO - 7 assessed: 10/19/24 Feeling nervous, anxious, or on edge: 0 = Not at all Not being able to stop or control worryin = Not at all Worrying too much about different things: 0 = Not at all Trouble relaxin = Not at all Being so restless that it is hard to sit still: 0 = Not at all Feeling afraid as if something awful might happen: 0 = Not at all Source: Developed by Drs. Pino Kingston, Sally Starr, Will Sanchez and colleagues, with an educational prateek from [employer]. CHAYO-7 Assessment Billing CHAYO-7 Assessment Tool: CHAYO-7 Assessment 81304 Review of Systems Const Details: - Endocrine: Reports management for diabetes with variations noted in HbA1c levels. - Respiratory: Reports occasional asthma inhaler use; denies current exacerbation. - Allergic/Immunologic: Reports seasonal allergies, increased symptoms recently. Physical exam (Primary Care) Vital Signs: Last Vital Signs Temp 97.3 F 01/18/25 10:42 Pulse 70 01/18/25 10:42 BP 132/88 01/18/25 10:42 Pulse Ox 98 01/18/25 10:42 Oxygen Delivery Method Room Air 01/18/25 10:42 Care Plan Goal for BP management: <130/90 at Goal BMI result Body Mass Index 37.6 BMI Assessment/Plan discussion: High BMI High, discussed plan: lifestyle, weight reduction, dietary, physical activity and alcohol moderation Tobacco/Smoking Status: Tobacco use Status Tobacco use date assessed 10/19/24 01/18/25 10:41 Patient Tobacco Use Status Former Tobacco user 01/18/25 10:41 e-Cigarette/Vaping Use Never Used 01/18/25 10:41 Thrive Assessment: Date of Thrive Assessment Date Thrive assessed 01/18/25 01/18/25 10:41 Currently or been in a relationship where the following occur: I choose not to answer Const Other: Appearance: Alert. Oriented X3. No acute distress. Head: Normal external exam. Normocephalic. Atraumatic. Eyes: Pupils are equal, round, and reactive to light. Extraocular movements intact. Conjunctiva and sclera normal. Eyelids normal. Throat: Pharynx normal. Uvula midline. Moist mucous membranes. Neck: Normal inspection. Neck supple. Full range of motion. Cardiovascular: Normal heart rate and rhythm. Heart sound normal. No murmurs noted. Pulses normal throughout. Respiratory: No respiratory distress. Painless inspiration. Back: Full range of motion noted. Skin: Skin warm and dry. Normal skin color. Normal skin turgor. No rashes/lesions/lacerations noted. Extremities:Extremities exhibit normal range of motion. Neuro: Normal Steady Gait. Extremities no deficits noted. Results AMB Hemoglobin A1c AMB Hemoglobin A1c 10.3 % Last Edit by TEO Metzger on 01/18/25 10: 54 Results Reviewed Results Reviewed: Laboratory Last Values Hgb A1c (Clinic) 10.3 % (4.0-6.0) H 01/18/25 10:42 - Labs: Hemoglobin A1c level currently at 10.3. - Recent Complete Blood Count (CBC) reported as normal. - Recent kidney function tests reported as normal. Coding Level of Care Code Est Pt Level 4 (46239) Complex EM visit Add On G2211 Diagnoses Type 1 diabetes mellitus with hyperglycemia, with long-term current use of insulin E10.65 Class 2 severe obesity with body mass index (BMI) of 35 to 39.9 with serious comorbidity E66.01 Asthma J45.909 Seasonal allergies J30.2 Additional Codes CHAYO-7 Assessment Billing - CHAYO-7 Assessment Tool: CHAYO-7 Assessment 55801 ([id number]) Assessment & Plan Assessment & Plan (1) Type 1 diabetes mellitus with hyperglycemia, with long-term current use of insulin: Code(s): E10.65 - Type 1 diabetes mellitus with hyperglycemia Category: Medical Plan: Continue diabetes management at [facility] with a follow-up appointment in March. Seek nutritional guidance with a potential referral to [facility]. Condition is chronic and stable continue to monitor. (2) Class 2 severe obesity with body mass index (BMI) of 35 to 39.9 with serious comorbidity: Code(s): E66.01 - Morbid (severe) obesity due to excess calories Category: Medical Plan: Patient to improve her diet and exercise regimen. Referral to nurse extern. Condition is chronic and stable continue to monitor. (3) Asthma: Code(s): J45.909 - Unspecified asthma, uncomplicated Category: Medical Plan: Maintain inhaler use as needed, with no reported acute exacerbations. Updated inhaler prescriptions provided. Condition is chronic and stable will continue to monitor. (4) Seasonal allergies: Code(s): J30.2 - Other seasonal allergic rhinitis Category: Medical Plan: Claritin or Zyrtec are considered to manage increased symptoms, with ycot-cky-cpjysbm assistance recommended due to insurance coverage constraints. Condition is chronic and stable will continue to monitor. Plan Plan Patient was informed and verbally consented to the use of an ambient scribe for clinic note documentation during this visit. 1. Type 1 Diabetes Mellitus Continue diabetes management at [facility] with a follow-up appointment in March. Seek nutritional guidance with a potential referral to [facility]. 2. Asthma Maintain inhaler use as needed, with no reported acute exacerbations. Updated inhaler prescriptions provided. 3. Seasonal Allergic Rhinitis Claritin or Zyrtec are considered to manage increased symptoms, with qelf-uxu-gflkemc assistance recommended due to insurance coverage constraints. I discussed with the patient the current management plan for Type 1 Diabetes Mellitus, including maintaining regular follow-up at [facility] and improving dietary management. We considered the fluctuating Hemoglobin A1c levels and agreed on the importance of nutritional guidance. The patient was satisfied with current asthma control and acknowledged the recent spike in allergic symptoms affecting her quality of life. We explored suitable allergy medications, considering insurance coverage limitations, and I offered available options to best manage these symptoms. Orders: Orders AMB Hemoglobin A1c Today E10.65 - Type 1 diabetes mellitus with hyperglycemia Referrals Diabetes Education Referral E10.65 - Type 1 diabetes mellitus with hyperglycemia Sr Technical Sales Consultant Nutrition Referral E66.01 - Morbid (severe) obesity due to excess calories Medications: New cetirizine (Zyrtec) 10 mg PO DAILY PRN 60 tabs 1RF allergy symptoms ascorbic acid (vitamin C) 1 g PO DAILY 90 tabs 1RF L.acid,dirk-B.anim,bifid,infan 50 billion cell (Fortify [place] Women Probiotic) 1 cap PO DAILY 90 caps 1RF multivitamin (Daily Multi-Vitamin tablet) 1 tab PO DAILY 90 tabs 1RF cholecalciferol (vitamin D3) 25 mcg PO DAILY 90 caps 1RF omega 9-zpg-wec-fish oil 300-1,000 mg (Fish Oil) 1 cap PO DAILY 90 caps 1RF Refilled albuterol sulfate 90 mcg/actuation (Ventolin HFA) 1 inh inhalation QID PRN 8.5 grams 1RF shortness of breath or wheezing Patient Instructions: - Continue monitoring blood sugar levels and follow up with [facility]. - Use the prescribed inhaler as required. - Take kxaw-gpe-ckfipjx allergy medications such as Claritin or Zyrtec for sy mptom relief. - Schedule a follow-up visit for an annual physical in three months. - Ensure a nutritious diet and exercise regularly.
[2025-01-18 10:42] VITALS: BP 132/88; PULSE 70; TEMP 36.3; O2SAT 98; BMI 37.6
--- OUTSIDE RECORDS SUMMARY | 2025-01-18 12:03 | XMS_ITS | Clinical Summary ---
Author Organization [facility] ity Address [address] [place] [address] Care Team Providers Care Swimmer Name Role Phone Unavailable Primary Care Provider [...] Vaccine (2023-2 5 season) 2024 Influenza Vaccine (Season Ended) 2025 HIB Vaccines Aged Out No longer eligi [...] age to complete this topic Meningococcal B Vaccine Aged Out No l onger eligible based on patient's age to complete [...]
== END 2025-01-18 11:19 | disposition home or self-care (01) ==
LOC: HO.HMCH 10:40
PROVIDERS: PCP Internal Medicine; Visit Provider Physician Assistant Medical
DX: E10.65 Type 1 diabetes mellitus with hyperglycemia (principal); E66.01 Morbid (severe) obesity due to excess calories; Z68.37 Body mass index [BMI] 37.0-37.9, adult; J45.909 Unspecified asthma, uncomplicated; J30.2 Other seasonal allergic rhinitis

== ENCOUNTER → 2025-01-18 10:39 | Outpatient (BNVA) | payer OTHER, SELFPAY | PROVIDERS: PCP Internal Medicine; Visit Provider Physician Assistant Medical | DX: E10.65 Type 1 diabetes mellitus with hyperglycemia (principal); E66.01 Morbid (severe) obesity due to excess calories; J45.909 Unspecified asthma, uncomplicated; Z68.37 Body mass index [BMI] 37.0-37.9, adult | CPT/HCPCS: 83036; 96127; 99212 ==

== ENCOUNTER 2025-07-12 09:09 | Outpatient (AMB) | payer OTHER, SELFPAY ==
[2025-07-12 09:20] VITALS: BMI 37.6
--- NOTE | 2025-07-12 09:20 | A.OFFVIS_ITS ---
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 Intake Note: here for annual Boat Hop Required: No Information Interpreted: non-clinical & clinical Tailer Off: Tailer Off Present (Daysi) Accompanied by: Self / Same As Patient Allergies insulin lispro (From Admelog U-100 Insulin lispro) Allergy (Mild, Verified 07/12/25 09:22) Blurry Vision Medication List - Last Reconciled 07/12/25 by Elzbieta Anderson CNM albuterol sulfate 90 mcg/actuation (Ventolin HFA) 1 inh inhalation QID PRN ascorbic acid (vitamin C) 1 g PO DAILY cetirizine (Zyrtec) 10 mg PO DAILY PRN cholecalciferol (vitamin D3) 25 mcg PO DAILY insulin aspart U-100 (Novolog FlexPen U-100 Insulin aspart) 5 units subcut TID L.acid,dirk-B.anim,bifid,infan 50 billion cell (Fortify [place] Women Probiotic) 1 cap PO DAILY magnesium aspart,citrate,oxide mg PO multivitamin (Daily Multi-Vitamin tablet) 1 tab PO DAILY omega 8-xmz-lwo-fish oil 300-1,000 mg (Fish Oil) 1 cap PO DAILY Is last menstrual period known: Yes Last menstrual period: 06/23/25 Do you need a note to return to daycare/school/sports/work: No HPI HPI 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 Patient is a type 1 diabetic she is in the middle of insurance shift and she is going to have to be paying more money for her insulin she just got a pump and sensor recently and things are better controlled when she has them. She also we will be seeing new PCPs and new washery boss from what she seems to be explaining.. 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 She is not interested in getting anymore. She is beginning to wonder about premenopausal changes she was wondering about getting the otua-xhq-lewmybi control pill because she wants to prevent she has sex about once every 3 months but says her partner would like it more. At the end of the visit, she also requested fluconazole as Monistat 7 is not covered by her insurance however she was advised about how to find the cheapest miconazole 7 nzwy-nzq-wqhkokh cream.. She decided that she would start on progestin only pills so instructions were given about how to start at the beginning of her next period and take 1 pill every single day and we will see her in 3 months to see how she is doing I did review dangers and risks and side effects with her. Suggest that she try and advocate for herself by speaking about her concerns about weight loss along with everything else with the washery boss and new PCC. [facility] Medical History (Updated 07/12/25 @ 10:17 by Elzbieta Anderson CNM) Cervical cancer screening (~07/06/24) Seasonal allergies History of mammogram (~05/12/24) Elevated blood pressure reading Hyperlipidemia LDL goal <70 Class 2 severe obesity with body mass index (BMI) of 35 to 39.9 with serious comorbidity Asthma Generalized anxiety disorder Type 1 diabetes mellitus with hyperglycemia, with long-term current use of insulin Surgical History S/P History of eye surgery Family History (Updated 07/12/25 @ 09:26 by Jade Mcconnell LPN) Mother No problems noted. Social History Housing: House Alcohol intake: current Alcohol intake frequency: holidays/special occasions only Patient Tobacco Use Status: Former Tobacco user e-Cigarette/Vaping Use: Never Used Second Hand Smoke Exposure: Yes service: No Current occupational status: employed Current occupational exposures/hazards: No Cognitive needs: No Hearing needs: No Vision needs: Yes (glasses) Female Reproductive History Menstrual Age of Menarche: 11 Date of last menstrual period: 06/23/25 control method: none Total pregnancies: 1 Number of Living Children: 1 Date of last pap smear: 07/06/24 History of abnormal pap smear: No Date of Mammogram: 05/12/24 History of abnormal mammogram: No Physical Exam Vital Signs: BMI result Body Mass Index 37.6 Const General: healthy appearing, comfortable, no acute distress, well developed and alert Nutritional Appearance: average body habitus Orientation/consciousness: patient oriented x3 Limitations: no limitations HEENT Head: Yes normocephalic Neck Neck: Yes normal visual inspection Chest Chest palpation & inspection: normal inspection of the chest Breast/axilla inspection: normal inspection of the breasts and normal inspection of the axillae Breast/axilla palpation: normal palpation of the breasts and normal palpation of the axillae Resp Effort & Inspection: normal respiratory effort GI Inspection: Yes normal to inspection, No Abdominal wall edema and No distended Palpation (GI): Soft to palpation and nontender Other: Patient declined STI testing. She finds speculum exam is uncomfortable always she does not have sex frequently but wants available control and wants to try starting the progestin only pills with the start of her next menses he also complains of occasional vaginal itching and burning and swollen labia which would be consistent with somebody who is type 1 diabetic and sometimes elevated blood sugars in her labia are somewhat reddened but she is not swollen today there is a small amount of curdish white discharge. Digital speculum exam done difficult to fully reach her cervix patient has history of 1 . We will treat for yeast\. No other abnormalities. No adnexal tenderness enlargement uterus difficult to palpate completely secondary to adipose. General: Yes bladder normal to palpation External Female Exam: normal external appearance and normal appearance of the urethra Speculum Exam - Vagina: normal appearance of the vagina, normal palpation and normal vaginal discharge Speculum Exam - Cervix: normal appearance of the cervix, normal palpation and nontender Bimanual exam- vagina & uterus: normal bimanual exam, normal palpation, uterine size normal, bladder normal to palpation, consistency normal, normal palpation, uterine mobility normal, uterine shape normal, No Cervical tenderness present, non-tender and no cervical motion tenderness Bimanual Exam- Adnexa, other: normal adnexae, no masses, normal and No adnexal tenderness Neuro General: patient oriented x3 Assessment & Plan Assessment & Plan (1) Type 1 diabetes mellitus with hyperglycemia, with long-term current use of insulin: Code(s): E10.65 - Type 1 diabetes mellitus with hyperglycemia Category: Medical (2) Yeast infection involving the vagina and surrounding area: Code(s): B37.31 - Acute candidiasis of vulva and vagina Category: Medical (3) control counseling: Code(s): Z30.09 - Encounter for other general counseling and advice on contraception Category: Medical (4) Cervical cancer screening: Onset Date: ~07/06/24 Comment: 07/06/24 Pap is negative with negative HPV. 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 Patient is a type 1 diabetic she is in the middle of insurance shift and she is going to have to be paying more money for her insulin she just got a pump and sensor recently and things are better controlled when she has them. She also we will be seeing new PCPs and new washery boss from what she seems to be explaining.. 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 She is not interested in getting anymore. She is beginning to wonder about premenopausal changes she was wondering about getting the ofox-zfu-nkpdkzv control pill because she wants to prevent she has sex about once every 3 months but says her partner would like it more. At the end of the visit, she also requested fluconazole as Monistat 7 is not covered by her insurance however she was advised about how to find the cheapest miconazole 7 ntzk-apy-zhgogyg cream.. She decided that she would start on progestin only pills so instructions were given about how to start at the beginning of her next period and take 1 pill every single day and we will see her in 3 months to see how she is doing I did review dangers and risks and side effects with her. Suggest that she try and advocate for herself by speaking about her concerns about weight loss along with everything else with the washery boss and new PCC. Medications: New norethindrone (contraceptive) Start at the beginning of the next menses. 0.35 mg PO DAILY 84 tabs 1RF fluconazole may repeat second dose 72 hrs after first dose if symptoms persist 150 mg PO Q3D 2 tabs 1RF 2 doses Coding Level of Care Code Est Pt Prev Care 40-64y(24038) Diagnoses Type 1 diabetes mellitus with hyperglycemia, with long-term current use of insulin E10.65 Yeast infection involving the vagina and surrounding area B37.31 control counseling Z30.09 Cervical cancer screening Z12.4
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
--- OUTSIDE RECORDS SUMMARY | 2025-07-12 10:17 | XMS_ITS | Encounter Summary ---
Author Organization [facility] Address [address] [place] [address] [place] [address] Phone Care Team Providers Care Religious Healer Name Role Phone Arianna Dan MD Primary Care Provid er Encounter Details Date Type Department Care Team (Late st Contact Info) Description 07/03/2025 Telephone [facility] [address] [place] [address] Gina Parekh, DAMION [address] [facility] [place] [address] Social History Tobacco Use Types Packs/Day Years [...] Job Start Date Job End Date [employer] Not on file Not on file Not on file documented as of this encounter Progress Notes * Etta Taylor MA - 07/03/2025 2:09 PM EDT Called and spoke with [facility] regarding the prescription for insulin aspart U-100 (NOVOLOG) 100 unit/mL injection vial . They stated it is covered by insurance and the co-pay is $100 for a 90 day supply. * Monika Phillips MA - 07/03/2025 1:05 PM EDT Mac- pls see gate way message, pt states insulin is $100 for 3mos and was wondering if there is something u can do so it can be covered with [employer] insurance. * Gina Parekh LDN - 07/03/2025 11:39 AM EDT Hi Team, Patience is wondering if we can request alcohol swabs, adhesive remover and skin prep from [facility]. She also noted she send in a portal message in April that has not been responded to, can we look into this please documented in this encounter Plan of Treatment Upcoming Encounters Date Type Department Care Team (Late st Contact Info) Description 07/18/2025 8:40 AM EST Office Visit [facility] [address] [place] [address] [place] [address] Ranjana Recio PA-C [address] [place] [address] 10/19/2025 10:00 AM EST Office Visit [facility] [address] [place] [address] Ranjana Recio PA-C [address] [place] [address] 11/06/2025 10:00 AM EST [facility] [address] [place] [address] Gina Parekh LDN [address] [facility], [address] [place] [address] 01/22/2026 10:00 AM EDT Office Visit [facility] [address] [place] [address] Magda Vieira MD [address] [place] [phone] documented as of this encounter Visit Diagnoses Not on filedocumented in this encounter Additional Health Concerns Infection Onset Date Last Indicated Resolved Time COVID-19 06/21/2025 06/21/2025 07/12/2025 1:21 AM EDT documented as of this encounter Care Teams Religious Healer Relationship Specialty Start Date End Date Arianna Dan MD [address] [place] [address] PCP - General Internal Medicine 04/12/18 documented as of this encounter Additional Source Comments The information contained in this document represents components of the legal health record. It is not the complete legal health record.[facility]
== END 2025-07-12 10:16 | disposition home or self-care (01) ==
LOC: HO.HWSM 09:09
PROVIDERS: PCP Internal Medicine; Visit Provider Advanced Practice Midwife
DX: Z01.419 Encounter for gynecological examination (general) (routine) without abnormal findings (principal); E10.65 Type 1 diabetes mellitus with hyperglycemia; B37.31 Acute candidiasis of vulva and vagina; Z30.09 Encounter for other general counseling and advice on contraception
CPT/HCPCS: 99396; 99459

== ENCOUNTER → 2025-07-12 09:09 | Outpatient (BNVA) | payer OTHER, SELFPAY | PROVIDERS: PCP Internal Medicine; Visit Provider Advanced Practice Midwife | DX: Z30.09 Encounter for other general counseling and advice on contraception (principal); Z12.4 Encounter for screening for malignant neoplasm of cervix; B37.31 Acute candidiasis of vulva and vagina; E10.65 Type 1 diabetes mellitus with hyperglycemia | CPT/HCPCS: 99396 ==

== ENCOUNTER 2025-08-17 10:44 | Outpatient (AMB) | payer OTHER, SELFPAY ==
--- NOTE | 2025-08-17 10:48 | A.OFFVIS_ITS ---
Vital Signs 08/17/25 10:54 Height 4 ft 8 in Weight 185 lb BMI 41.5 BP 138/66 Blood Pressure Location Rt brachial Position Sitting Pulse 74 Pulse Source Pulse Oximeter Pulse Oximetry (%) 98 Oxygen Delivery Method Room Air Intake Visit Reasons: Initial colo screen. R/S x1. Intake Note: New pt for initial colo screening. CC; C/O mild, intermittent constipation + diabetes mgmt related concerns. Pt states that she has been taking a probiotic which has helped to keep her BMs more regular. Does still experience some constipation. No pertinent surgical or FMHx. Water Control Supervisor Required: No Accompanied by: Self / Same As Patient Allergies insulin lispro Allergy (Unknown, Verified 08/17/25 10:51) Blurry Vision HPI HPI Initial colo screen. R/S x1.: Details: 45 year old? female here today for pre colonoscopy screening.? Patient was sent to us by her PCP.? This is her first colonoscopy screening.? Patient denies any gastrointestinal symptoms in the past or at present.? Denies any personal or family history of gastrointestinal disease, colon polyps, or CRC.? Denies history of difficulty with sedation or anesthesia in the past.? Negative for history of sleep apnea.? Patient was told that she snores very loudly during sleep. Denies any history of cardiac, renal, pulmonary, or hepatic disease.?? No history of infectious? diseases like hepatitis A, B, C, HIV or tuberculosis.? Patient is not on any anticoagulation [facility] Medical History Cervical cancer screening (~07/06/24) Seasonal allergies History of mammogram (~05/12/24) Elevated blood pressure reading Hyperlipidemia LDL goal <70 Class 2 severe obesity with body mass index (BMI) of 35 to 39.9 with serious comorbidity Asthma Generalized anxiety disorder Type 1 diabetes mellitus with hyperglycemia, with long-term current use of insulin Surgical History S/P History of eye surgery Family History Mother No problems noted. Social History Housing: House Alcohol intake: current Alcohol intake frequency: holidays/special occasions only Patient Tobacco Use Status: Former Tobacco user e-Cigarette/Vaping Use: Never Used Second Hand Smoke Exposure: Yes service: No Current occupational status: employed Current occupational exposures/hazards: No Cognitive needs: No Hearing needs: No Vision needs: Yes (glasses) Female Reproductive History Menstrual Age of Menarche: 11 Review of Systems Const Denies weight gain and Denies weight loss ENT Reports no additional complaints, Denies dysphagia and Denies odynophagia Card Reports no additional complaints Resp Reports no additional complaints GI Denies abdominal pain, Denies belching, Denies melena, Denies bloating, Denies change in bowel habits, Denies dysphagia, Denies excessive flatus, Denies dyspepsia, Denies heartburn, Denies diarrhea, Denies loose stools, Denies nausea, Denies odynophagia and Denies vomiting Musc Reports no additional complaints Neuro Reports no additional complaints Psych Reports no additional complaints Endo Reports no additional complaints Physical Exam Vital Signs: Last Vital Signs Pulse 74 08/17/25 10:54 BP 138/66 08/17/25 10:54 Pulse Ox 98 08/17/25 10:54 Oxygen Delivery Method Room Air 08/17/25 10:54 BMI result Body Mass Index 41.5 Const General: healthy appearing and no acute distress Nutritional Appearance: obese Orientation/consciousness: patient oriented x3 Resp Effort & Inspection: normal respiratory effort, able to speak in complete sente nces, no tracheal deviation and symmetric chest movement Auscultation: clear to auscultation bilaterally Cardio Rate: regular rate GI Inspection: Yes normal to inspection, No distended and Yes obesity Palpation (GI): Soft to palpation, not firm, nontender and No hepatosplenomegaly present Auscultation: normal bowel sounds General: Yes no CVA tenderness Back/Spine/Pelvis Back: no CVA tenderness Skin General skin exam: elasticity normal, turgor normal and dry skin Neuro General: patient oriented x3 Psych Appearance: grossly normal Mental Status: mental status grossly normal Assessment & Plan Assessment & Plan (1) Screen for colon cancer: Code(s): Z12.11 - Encounter for screening for malignant neoplasm of colon Plan Patient denies any GI, cardiac or respiratory symptoms. Patient reports that since she started taking probiotics she is moving her bowels regularly.? Denies any issues with anesthesia in the past.? Denies any history of sleep apnea.? No history infectious diseases in the past or present.? Not on any anticoagulation therapy.? No family or personal history of colon cancer or polyps.? Patient denies melena, hematochezia, unintentional weight loss or ribbon like stools.? Discussed at length the pre-procedure,? prep, diet & medications as well as what to expect prior, during and after the procedure.?? Stressed the importance of good bowel prep.? Recommended the use of Vaseline or Calmoseptine OTC & baby wipes with bowel movements to promote comfort.? ?Patient verbalizes understanding and agrees to plan of care.? She was given the opportunity to ask questions and all questions answered.? We will see her after the procedure.? Orders: Referrals GI Procedure Notification Z12.11 - Encounter for screening for malignant neoplasm of colon Medications: New polyethylene glycol 3350 (Miralax) As directed by gastroenterology department at [facility] 238 grams PO ONCE 238 grams 0RF Z12.11 - Encounter for screening for malignant neoplasm of colon bisacodyl (Dulcolax (bisacodyl)) Start taking 2 tablet every night 7 days before the procedure and 1 day before procedure take 4 tablets at noon time followed by MiraLax prep 10 mg (2 x 5 mg) PO BEDTIME 16 tabs 0RF Z12.11 - Encounter for screening for malignant neoplasm of colon Coding Level of Care Code New Pt Level 3 (36365) Diagnoses Screen for colon cancer Z12.11 Time Spent (min) 40 Comment 30 minutes spent with patient and additional 10 minutes spent reviewing her records
[2025-08-17 10:54] VITALS: BP 138/66; PULSE 74; O2SAT 98; BMI 41.5
--- OUTSIDE RECORDS SUMMARY | 2025-08-17 12:55 | XMS_ITS | Clinical Summary ---
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 Name Role Phone Unavailable Primary Care Provider [...] Last Done Comments Breast Cancer Screening 1979 Colorectal Cancer Screening: Colonoscopy 1979 DTaP,Tdap,and Td Vaccines (1 - Tdap) 1998 Hepatitis B Vaccines (1 of 3 - 19+ 3-dose series) 1998 Cervical Cancer Screening: P ap Smear 2000 HIV Screening 08/16/2022 Hepatitis C Screening 08/16/2022 Social Influencers of Health Screening 08/16/2022 Depression Screening 09/13/2024 COVID-19 Vaccine (1 - 2024-2 6 season) 2025 Influenza Vaccine (#1) 2025 RSV Immunization Adult Patie nts (1 - 1-dose 75+ series) 2054 HIB Vaccines Aged Out No longer eligi [...] 5 Years) and At-Risk Patients (6 to 49 Years) Aged Out No longer eligible b ased on patient's age to complete this topic RSV Immunization Patients Un prosper 20 months Aged Out No longer eligible b ased on patient's age to complete this topic Varicella Vaccines Aged Out No longer eligible based on patient's age to complete this topic
--- OUTSIDE RECORDS SUMMARY | 2025-08-17 12:55 | XMS_ITS | Clinical Summary ---
Author Organization [facility] Address [address] [place] [phone] Phone Care Team Providers Care Electrician Second Name Role Phone Arianna Dan MD Primary Care Provid er Allergies Active Allergy Reactions Criticality Noted Date Comments Insulin Lispro Shortness Of Breath,Headaches,Dizziness,Fatigue,Carmen n,Syncope High 06/13/2022 Medications docosahexaenoic acid/epa (FISH OIL ORAL) Take by mouth. Activ e cholecalciferol (VITAMIN D3) 25 MCG (1,000 unit) tablet Take 1,000 Units by mouth daily. Active acetaminophen (TYLENOL) 325 mg tablet Take [...] Active Additional Information Patient not taking.Reported on 07/18/2025 albuterol (PROAIR HFA) 90 mcg/actuation inhaler Inhale 2 puffs into the lungs every 4 (four) hours as needed for wheezing. 18 g 10/09/202 5 Active benzonatate (TESSALON) 100 MG capsule Take 2 capsules (200 mg total) by mouth 3 (three) times a day as needed for cough. 21 capsule Active inhaler spacing device (AEROCHAMBER,ELYSSA ATHERITE) Spcr Inhale 1 each into the lungs every 4 (four) hours as needed (with inhaler). 1 each Active fluconazole (DIFLUCAN) 150 MG tablet Take 150 mg by mouth as needed. Active norethindrone (MICRONOR) 0.35 mg tablet Take 1 tablet by mouth daily. Active Active Problems Problem Noted Date Diagnosed [...] following her every move through putting a banjo repair person on her phone and questioning every move [...] has previously tried reaching out to legal rosebud and domestic violence groups and has not heard any response from them. While in the office today, gave her the information for the [employer] group in [place]. With her boyfriend watching her every move [...] -To have labs today -Patient to call [employer] for sensor prescription -Goal to use automated [...] Up to date with opho. Labs ordered Assessment & Plan (02/07/2024 9:20 [...] by PCP about a month ago at [facility]. If TSH, fasting lipids and urine microalbumin not included, would check with next labs in 3 months. Suggested to meet RD to build a healthy meal plan she could follow in her hectic schedule. May try a meal substitute like Glucerna if no time for meal. Reviewed home callus care on her left foot. If not improving, patient may see you slimer for callus care, question insole. Insulin pump in place 04/14/2023 Assessment & Plan (04/13/2025 12:23 PM EDT): She is using the medtronic 780G insulin pump and guardian 4 sensor. She is currently getting her supplies from [facility], she would like to try and switch [...] yet. She is getting her supplies from [facility] [employer] [facility] Assessment & Plan (02/07/2024 9:26 PM EDT): Patient currently using MiniMed 770 G pump without sensor. She will upgrade to the 780 G pump with Guardian 4 sensor after [employer] is sending her a [employer] phone. Her current phone is not compatible with the MiniMQuri oscar. She will do the training online. [...] to upgrade. She will reach out to [facility] [employer] [facility] [facility] Assessment & Plan (04/16/2023 8:55 AM EDT): [...] with neurological manif estations 07/05/2018 Overview (10/17/2018): Insurance And Financial Services Agent : Dr Vieira at [facility]- [phone] (MD only line is [phone]) and DRISS Cartagena. o 1st trimester - (-TSH Type 1 only) - Hgb A1C (A1C btwn 5.7% and <6.5%) 8.5 - Baseline PIH labs - Consider baseline ECG - consider NT scan (serum not needed if getting cfDNA) - Consider early anatomy scan - Begin baby ASA at 12-14 wks - Referral to [facility] or help desk assistant o Level 2 sono & echo - normal o Repeat: UA C&S at 28 wks o Growth sono at 28wks then q 4 wks o 32 wks BPP wkly o 36 wks add NST o Induction 39-40wks Assessment & Plan (07/18/2025 3:12 PM EST): Control is improving based upon the patient's insulin pump download. No frequent or severe hypoglycemia. She had a recent low while working, she corrected something to eat and then was fine. Reviewed how to prevent and treat lows. She has been better about having snacks while working and this is helping to maintain her glucose levels much better. Will maintain her current pump settings. She is planning to stay on the guardian 4 sensor for now, may consider one of the newer medtronic sensors in the future but not now. Continue to work on eating healthy and being active. To call or message with any issues managing her glucose levels. [facility] Labs ordered today Assessment & Plan (04/13/2025 12:29 PM EDT): [...] her glucose levels. Up to date with [facility]. Labs ordered today Assessment & Plan (11/02/2023 [...] her glucose levels. Up to date with [facility]. Labs ordered today Assessment & Plan (09/20/2023 [...] with any issues managing her glucose levels. Opho scheduled. Will request recent labs done at [facility] Assessment & Plan (04/16/2023 8:55 AM EDT): Control is improving based upon the patient's insulin pump download. No frequent or severe hypoglycemia. Will maintain her current pump settings. Will fill out and fax the pump upgrade paperwork to [employer] [facility] to beging the upgrade process. Continue to work on eating healthy and being active. To call or message with any issues managing her glucose levels. Due to schedule ophtho. Labs ordered today Assessment & Plan (07/19/2018 3:15 PM EST): Pt was counseled by Dr. Li at her appointment with him (infertility consult with positive test). She had a Hgb A1C of . She has appointment with her help desk assistant in [place] tomorrow. We discussed coordination of care and importance of diabetic control for well being of her and of baby. She has been counseled previously about risks of uncontrolled diabetes in and was working closely with her help desk assistant. She will be seen by MDs. Resolved [...] Encounters Date Type Department Care Team Description 2025 Orders Only [facility] [address] [facility] [place] [address] Ranjana Recio PA-C Type 1 diabetes mellitus with hyperglycemia (Primary Dx) 07/18/2025 8:40 AM EST Office Visit [facility] [address] [place] [address] Ranjana Recio PA-C Type 1 diabetes mellitus with diabetic neuropathy (Primary Dx) 07/03/2025 11:00 AM EDT Nutrition [facility] [address] [place] [address] Magda Vieira MD Dawicki, Jessica Jeanne, LDN Type 1 diabetes mellitus with diabetic neuropathy (Primary Dx); Insulin pump in place 07/03/2025 Telephone [facility] [address] [place] [address] Gina Parekh LDN 06/21/2025 1:20 PM EDT Office Visit [facility] at [address] [address] Genny Foreman, SALVADOR COVID-19 (Primary Dx) from Last 3 Months Immunizations Immunization Administration [...] Packs/Day Years Used Date Smoking Tobacco: Former Passive Smoke Exposure: Past Smokeless Tobacco: Never Tobacco Cessation:Counseling Given: Not Answered Alcohol Use Standard Drinks/Week Comments No 0 [...] 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 Not on file Not on file Not on file Last Filed Vital Signs Vital Sign Reading Time Taken Comments Blood Pressure 118/70 07/18/2025 8:39 AM EST Pulse 75 07/18/2025 8:39 AM EST Temperature 36.8 C (98.2 F) 06/21/2025 1:12 PM EDT Respiratory Rate 20 07/18/2025 8:39 AM EST Oxygen Saturation 98% 07/18/2025 8:39 AM EST Inhaled Oxygen Concentration - - Weight 84 kg (185 lb 3.2 oz) 07/18/2025 8:39 AM EST Height 144.8 cm (4' 9 ) 06/21/2025 1:12 PM EDT Body Mass Index 40.08 06/21/2025 1:12 PM EDT Plan of Treatment Upcoming Encounters Date Type Department Care Team (Late st Contact Info) Description 10/19/2025 10:00 AM EST Office Visit [facility] [address] [place] [address] [place] [address] Ranjana Recio PA-C [address] [place] [address] 11/06/2025 10:00 AM EST Nutrition [facility] [address] [place] [address] [place] [address] Gina Parekh LDN [address] [place] [address] 01/22/2026 10:00 AM EDT Office Visit [facility] [address] [place] [address] [place] [address] Magda Vieira MD [address] [place] [address] Health Maintenance Due Date Last Done Comments DEPRESSION SCREENING 1991 SMOKING Hx and SMOKELESS TOBACCO SCREENING 1992 PNEUMOCOCCAL VACCINES (0-49 years) (1 of 2 - PCV) 1998 PAP SMEAR 2000 DIABETIC EYE EXAM 07/05/2018 MAMMOGRAM 2019 COLOGUARD 2024 COLONOSCOPY 2024 COLORECTAL CANCER SCREENING 2024 FIT TEST 2024 FOBT 2024 SIGMOIDOSCOPY 2024 VIRTUAL COLONOSCOPY 2024 COVID-19 VACCINE ( season) 2025 03/05/2021, 02/11/2021 HEMOGLOBIN A1C 11/02/2025 08/02/2025, 01/2025, 08/09/2024, Additional history exists BLOOD PRESSURE 01/15/2026 07/18/2025 LIPID PANEL 08/02/2026 08/02/2025, 07/18/2025 URINE MICROALBUMIN/CREATININE RATIO 08/02/2026 08/02/2025, 07/18/2025 Adult Td,Tdap Booster 01/19/2035 01/19/2025, 015 HEPATITIS C SCREENING Completed 07/19/2018, 018 HIV ONE-TIME SCREENING (18-65 YEARS) Completed 07/19/2018 [...] Procedure Name Priority Date/Time Associated Diagnosis Comments HEMOGLOBIN A1C Routine 08/02/2025 3:07 PM EST Type 1 diabetes mellitus with diabetic neuropathy BASIC METABOLIC PANEL (BMP) Routine 08/02/2025 3:07 PM EST Type 1 diabetes mellitus with diabetic neuropathy MICROALBUMIN/CREATININE RATIO, RANDOM URINE Routine 08/02/2025 3:07 PM EST Type 1 diabetes mellitus with diabetic neuropathy LIPID PANEL Routine 08/02/2025 3:07 PM EST Type 1 diabetes mellitus with diabetic neuropathy TSH WITH REFLEX Routine 08/02/2025 3:07 PM EST Type 1 diabetes mellitus with diabetic neuropathy ALANINE AMINOTRANSFERASE (ALT) Routine 08/02/2025 3:07 PM EST Type 1 diabetes mellitus with hyperglycemia ASPARTATE AMINOTRANSFERASE (AST) Routine 08/02/2025 3:07 PM EST Type 1 diabetes mellitus with hyperglycemia LIPID PANEL Routine 07/18/2025 10:02 AM EST Type 1 diabetes mellitus with diabetic neuropathy BASIC METABOLIC PANEL (BMP) Routine 07/18/2025 10:02 AM EST Type 1 diabetes mellitus with diabetic neuropathy HEMOGLOBIN A1C Routine 07/18/2025 10:02 AM EST Type 1 diabetes mellitus with diabetic neuropathy MICROALBUMIN/CREATININE RATIO, RANDOM URINE Routine 07/18/2025 10:00 AM EST Type 1 diabetes mellitus with diabetic neuropathy POCT COVID-19 RT-PCR/INFLUENZA A & B/RSV CEPHEID Routine 06/21/2025 1:05 PM EDT COVID-19 HEPATITIS C ANTIBODY, QUALITATIVE Routine 07/19/2018 12:45 PM EST Supervision of high risk elderly multigravida in first trimester from Last 3 Months or Most Recently Relevant to Health Maintenance Results * Thyroid Stimulating Hormone (TSH), with Reflex (08/02/2025 3:07 PM EST) TSH 0.98 0.40 - 5.00 uIU/mL 08/02/2025 4:20 PM EST [facility] Blood (Blood) Venipuncture / Unknown 08/02/2025 3:07 PM EST 08/02/2025 3:19 PM EST us Ranjana Recio PA-C LAB BLOOD BKR [place] Final Result [facility] [address] [place] [address] * (ABNORMAL) Microalbumin/Creatinine Ratio, Random Urine (08/02/2025 3:07 PM EST) Only the most recent of2 resultswithin the time period is included. Creatinine, Urine 165 mg/dL 08/02/2025 4:22 PM EST [facility] Microalbumin, Urine 8.8(H) <2.0 mg/dL 08/02/2025 4:22 PM EST [facility] MALB/CRE 53.3(H) <30.0 mg/g Cre 08/02/2025 4:22 PM EST [facility] Urine (Urine, Voided) Non-Blood Collection / Unknown 08/02/2025 3:07 PM EST 08/02/2025 3:18 PM EST Narrative [facility] - 08/02/2025 4:22 PM EST The reference interval(s) are unavailable for this specimen type. Comparison of this result with other laboratory results, such as the concentration in the blood, serum, or plasma, is recommended. The test result should be integrated into the clinical context for interpretation. Ranjana Recio PA-C LAB URINE ORDERABL ES Final Result Performing Organization Address City/[facility]/ZIP Co de Phone Number [address] [address] * Alanine Aminotransferase (ALT) (08/02/2025 3:07 PM EST) Pathologist [facility] ALT 10 <34 U/L 08/02/2025 4:2 0 PM EST [facility] Blood (Blood) Venipuncture / Unknown 08/02/2025 3:07 PM EST 08/02/2025 3:19 PM EST Ranjana Recio PA-C LAB BLOOD BKR ORDE RAB[place] Final Result Performing Organization Address City/[facility]/ZIP Co de Phone Number [address] [address] * Aspartate Aminotransferase (AST) (08/02/2025 3:07 PM EST) AST 14 <33 U/L 08/02/2025 4:2 0 PM [facility] Blood (Blood) Venipuncture / Unknown 08/02/2025 3:07 PM EST 08/02/2025 3:19 PM EST Ranjana Recio PA-C LAB BLOOD BKR [place]ERE[place] Final Result [address] [address] * (ABNORMAL) Hemoglobin A1c (08/02/2025 3:07 PM EST) Only the most recent of2 resultswithin the time period is included. Hemoglobin A1c 9.2(H) 4.3 - 5.6 % 08/02/2025 4:06 PM [facility] Calculated Mean Blood Glucose 217 mg/dL 08/02/2025 4:06 PM [facility] Comment:There is no establis [facility] normal range for the Estimated Average Glucose (EAG). However, a HbA1c of 5.6% (upper limit of normal) represents an EAG of 114 mg/dL. The diagnostic HbA1c level for diabetes is greater than or equal to 6.5%, which represents an EAG greater than or equal to 140 mg/dL. Blood (Blood) Venipuncture / Unknown 08/02/2025 3:07 PM EST 08/02/2025 3:19 PM EST Ranjana Recio PA-C LAB BLOOD BKR ORDE MICKEYDEREK Final Result Performing Organization Address City/[facility]/ZIP Co de Phone Number [address] [address] * Lipid Panel (08/02/2025 3:07 PM EST) Only the most recent of2 resultswithin the time period is included. Cholesterol 173 <200 mg/dL 08/02/2025 4:20 PM [facility] HDL 56 >=40 mg/dL 08/02/2025 4:20 PM [facility] Calculated LDL 96 <130 mg/dL 08/02/2025 4:20 PM [facility] Comment:LDL is calculated us ing the Cervantes-NIH equation (PÉREZ Cardiol. 2019January 11;5(5):540-548). Non-HDL Cholesterol 117 mg/dL 08/02/2025 4:20 PM [facility] Comment:Guidelines suggest a non-HDL cholesterol goal 30 mg/dL higher than the patient-specific LDL cholesterol goal. Cardiac Risk Ratio 3.1 0.0 - 5.0 2024 4:20 PM [facility] Triglycerides 116 <=150 mg/dL 08/02/2025 4:20 PM [facility] Blood (Blood) Venipuncture / Unknown 08/02/2025 3:07 PM EST 08/02/2025 3:19 PM EST us Ranjana Recio PA-C LAB BLOOD BKR [place] Final Result [address] [address] * (ABNORMAL) Basic Metabolic Panel (BMP) (08/02/2025 3:07 PM EST) Only the most recent of2 resultswithin the time period is included. Sodium 135(L) 136 - 145 mmol/L 08/02/2025 4:20 PM [facility] Potassium 4.4 3.4 - 5.1 mmol/L 08/02/2025 4:20 PM [facility] Comment:NOTE: Specimen hemol yzed. Results may be falsely increased. Chloride 100 98 - 107 mmol/L 08/02/2025 4:20 PM [facility] CO2 26 20 - 31 mmol/L 08/02/2025 4:20 PM [facility] Anion Gap 9 3 - 17 mmol/L 08/02/2025 4:20 PM [facility] BUN 17 6 - 23 mg/dL 08/02/2025 4:20 PM [facility] Creatinine 0.90 0.50 - 1.00 mg/dL 08/02/2025 4:20 PM [facility] eGFR 80 >59 mL/min/1.7 3m2 08/02/2025 4:20 PM [facility] Comment:Estimated glomerular filtration rate calculated using the CKD-EPI refit equation. Glucose 164(H) 70 - 99 mg/dL 08/02/2025 4:20 PM [facility] Calcium 9.3 8.5 - 10.5 mg/dL 08/02/2025 4:20 PM [facility] Blood (Blood) Venipuncture / Unknown 08/02/2025 3:07 PM EST 08/02/2025 3:19 PM EST us Ranjana Recio PA-C LAB BLOOD BKR [place]yka LA[place] Final Result [address] [address] * (ABNORMAL) POCT COVID-19 RT-PCR/Influenza A & B/RSV (Cepheid) (06/21/2025 1:05 PM EDT) [facility] RSV PCR Negative Negative [facility] SARS-CoV-2 (COVID-19) Positive(A) Negative [facility] Influenza A PCR Negative Negative [facility] Influenza B PCR Negative Negative [facility] 06/21/2025 1:05 PM EDT 06/21/2025 1:50 PM EDT us Genny Foreman CARE PROVIDER LAB POCT ENTER/EDIT ORDERAB LES Final Result [facility] [address] [address], [facility] [phone] * Hepatitis C antibody, qualitative (07/19/2018 12:45 PM EST) HCV Negative Negative [facility] Comment: This is a screening test and should be confirmed with molecular testing Blood 07/19/2018 12:4 5 PM EST 07/19/2018 12:49 PM EST Krista Vernon CRIMINAL JUSTICE SOCIAL WORKER LAB BLOOD BKR ORDERABLES Final Result [facility] [address] [place] [address] from Last 3 Months or Most Recently Relevant to Health Maintenance Insurance [facility] NON NSPG PCP SILVER CLARITY CONNECTORCARE [facility] NON NSPG PCP INDIANOLA CLARITY CONNECTORCARE [employer] NON NSPG PCP SILVER CLARITY CONNECTORCARE [place] NON NSPG PCP SILVER CLARITY CONNECTORCARE [employer] NON NSPG PCP SILVER CLARITY CONNECTORCARE [employer] NON NSPG PCP SILVER SAE[place] CONNECTORCARE Care Teams Electrician Second Relationship Specialty Start Date End Date Arianna Dan MD [address] [place] [address] PCP - General Internal Medicine 04/12/18 Additional Source Comments The information contained in this document represents components of the legal health record. It is not the complete legal health record.[facility]
--- OUTSIDE RECORDS SUMMARY | 2025-08-17 12:55 | XMS_ITS | Encounter Summary ---
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 Not on file Not on file documented as of this encounter Progress Notes * Etta Taylor MA - 07/03/2025 2:09 PM EDT Called and spoke with [facility] pharmacy regarding the prescription for insulin aspart [...] 10:00 AM EST Office Visit [facility] [address] [place] [address] [place] [address] Ranjana Recio PA-C [address] [place] [address] 11/06/2025 10:00 AM EST Nutrition [facility] [address] [place] [address] Gina Parekh LDN [address] [address] 01/22/2026 10:00 AM EDT Office Visit [facility] [address] [place] [address] Magda Vieira MD [address] [place] [address] documented as of this encounter Visit Diagnoses Not on filedocumented in this encounter Additional Health Concerns Infection Onset Date Last Indicated Resolved Time COVID-19 06/21/2025 06/21/2025 07/12/2025 1:21 AM EDT documented as of this encounter Care Teams Stitchdowns Toe Former Relationship Specialty Start Date End Date Arianna Dan MD [address] [place] [address] PCP - General Internal Medicine 04/12/18 documented as of this encounter Additional Source Comments The information contained in this document represents components of the legal health record. It is not the complete legal health record.[facility]
--- OUTSIDE RECORDS SUMMARY | 2025-08-17 12:55 | XMS_ITS | Encounter Summary ---
Author Organization [facility] Address [address] [facility] [address] [place] [address] Phone Care Team Providers Care Tub Puller Name Role Phone Arianna Dan MD Primary Care Provid er Encounter Details Date Type Department Care Team (Late st Contact Info) Description 2025 Orders Only [facility] Main [address] [place] [address] Ranjana Recio PA-C [address] [place] [address] [email or web address] Type 1 diabetes mellitus with hyperglycemia (Primary Dx) Social History Tobacco Use Types Packs/Day Years Used Date Smoking Tobacco: Former Passive Smoke Exposure: Past Smokeless Tobacco: Never Alcohol Use Standard Drinks/Week [...] 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 on file Not on file documented as of this encounter Plan of Treatment Upcoming Encounters Date Type Department Care Team (Late st Contact Info) Description 10/19/2025 10:00 AM EST Office Visit [facility] [address] [place] [address] Ranjana Recio PA-C [address] [place] [address] 11/06/2025 10:00 AM EST Nutrition [facility] [address] [place] [address] Gina Parekh LDN [address] [address] 01/22/2026 10:00 AM EDT Office Visit [facility] [address] [place] [address] Magda Vieira MD [address] [place] [address] documented as of this encounter Results * Alanine Aminotransferase (ALT) (08/02/2025 3:07 PM EST) ALT 10 <34 U/L 08/02/2025 4:2 0 PM EST [facility] Blood (Blood) Venipuncture / Unknown 08/02/2025 3:07 PM EST 08/02/2025 3:19 PM EST us Ranjana Recio PA-C LAB BLOOD BKR [place] Final Result [facility] [address] [place] [address] * Aspartate Aminotransferase (AST) (08/02/2025 3:07 PM EST) AST 14 <33 U/L 08/02/2025 4:2 0 PM EST [facility] Blood (Blood) Venipuncture / Unknown 08/02/2025 3:07 PM EST 08/02/2025 3:19 PM EST us Ranjana Recio PA-C LAB BLOOD BKR [place] Final Result [address] [address] documented in this encounter Visit Diagnoses Diagnosis Type 1 diabetes mellitus with hyperglycemia- Primary documented in this encounter Care Teams Tub Puller Relationship Specialty Start Date End Date Arianna Dan MD [address] [place] [address] PCP - General Internal Medicine 04/12/18 documented as of this encounter Additional Source Comments The information contained in this document represents components of the legal health record. It is not the complete legal health record.[facility]
== END 2025-08-17 11:37 | disposition home or self-care (01) ==
LOC: HO.HGI 10:45
PROVIDERS: PCP Internal Medicine; Visit Provider Nurse Practitioner Family
DX: Z01.818 Encounter for other preprocedural examination (principal); Z12.11 Encounter for screening for malignant neoplasm of colon
CPT/HCPCS: 99203

== ENCOUNTER → 2025-08-17 10:44 | Outpatient (BNVA) | payer OTHER, SELFPAY | PROVIDERS: PCP Internal Medicine; Visit Provider Nurse Practitioner Family | DX: Z12.11 Encounter for screening for malignant neoplasm of colon (principal) | CPT/HCPCS: 99202 ==